=== PATIENT | male | born 1955 | race Caucasian/White ===

== ENCOUNTER 2019-02-17 15:40 | Inpatient (IN) ==
--- NOTE | 2019-02-17 16:34 | Diag Imaging Result Doc PS360 ---
EXAM: CHEST-1 VIEW INDICATION: POSSIBLE SEPSIS TECHNIQUE: One view COMPARISON: 12/11/2018 FINDINGS: There is a stable right chest port. There is a stable calcified granuloma at the right lung base. The lungs are grossly clear. There is no discrete pleural fluid collection or pneumothorax. The cardiomediastinal silhouette and central vasculature are grossly unremarkable. IMPRESSION: No evidence of acute pathology by plain radiograph. Electronically signed by Gadiel Sagastume 02/17/2019 4:31 PM
[2019-02-17 17:12] LABS: BASO# 0.04 X1000 (0.0-0.2); BASO% 0.9 % (0.0-0.8); EOS# 0.03 X1000 (0.0-0.7); EOS% 0.7 % (0.0-10.0); HEMATOCRIT 33.3 % (42.0-52.0); HEMOGLOBIN 10.1 g/dL (14.0-18.0); IMM GRAN# 0.05 X1000 (0.0-0.04); IMM GRAN% 1.1 % (0.0-0.5); LYMPH# 1.06 X1000 (1.2-3.4); LYMPH% 23.6 % (20.5-51.1); MCH 28.1 PG (27-31); MCHC 30.3 g/dL (33-37); MCV 92.8 FL (81-99); MONO# 0.78 X1000 (0.11-0.59); MONO% 17.4 % (1.7-9.3); MPV 11.1 FL (7.4-10.4); NEUT# 2.53 X1000 (1.4-6.5); NEUT% 56.3 % (42.2-75.2); PLT 164 X1000 (130-400); RBC 3.59 XMIL (4.7-6.1); RDW 17.5 % (11.5-14.5); WBC 4.49 X1000 (4.8-10.8)
[2019-02-17] MEDS ORDERED: NS 1,000 ML IV ONE (17:27)
[2019-02-17] MEDS ORDERED: ZOFRAN IV ONE (17:28)
[2019-02-17 17:44] LABS: INR 1.22; PROTIME 15.5 Seconds (11.0-16.0)
[2019-02-17 17:53] LABS: PTT 36.7 Seconds (22.3-41.8)
[2019-02-17 18:17] LABS: BUN 17 mg/dL (8-22); CALCIUM 8.3 mg/dL (8.8-10.2); GLUCOSE 111 mg/dL (70-104); TCO2 22 mmol/L (25-35); TOTAL PROTEIN 6.6 g/dL (6.3-8.3)
[2019-02-17 18:20] LABS: ALBUMIN 3.1 g/dL (3.5-5.0); ALKALINE PHOSPHATASE 227 U/L (32-122); CHLORIDE 96 mmol/L (98-107); CK PROFILE 30 U/L (24-204); CREATININE 1.2 mg/dL (0.7-1.2); ESTIMATED GFR > 60; GOT 13 U/L (10-34); GPT 14 U/L (10-44); POTASSIUM 3.7 mmol/L (3.5-5.1); SODIUM 138 mmol/L (136-145)
[2019-02-17 18:27] LABS: AGAP 20; ALB/GLOB RATIO 0.9; COSMO 278
[2019-02-17 18:47] LABS: URINE SOURCE CLEAN CATCH
[2019-02-17 18:52] LABS: BILIRUBIN URINE MODERATE (NEGATIVE); BLOOD URINE TRACE (NEGATIVE); COLOR YELLOW; GLUCOSE URINE TRACE mg/dL (NEGATIVE); KETONE URINE 10 mg/dL (NEGATIVE); LEUKOCYTES URINE NEGATIVE (NEGATIVE); NITRITE URINE NEGATIVE (NEGATIVE); PROTEIN URINE 300 mg/dL (NEGATIVE); TURBIDITY URINE HAZY (CLEAR); UROBILINOGEN URINE 4 mg/dL (NORMAL)
[2019-02-17 18:55] LABS: UR EPITHELIAL CELLS <10 /HPF (<10); URINE BACTERIA NEGATIVE /HPF; URINE RBC <10 /HPF (<10)
[2019-02-17 19:04] LABS: URINE CASTS NONE SEEN; URINE CRYSTALS NONE SEEN; URINE SMALL ROUND CELLS NONE SEEN; URINE YEAST NONE SEEN
--- NOTE | 2019-02-17 20:27 | Diag Imaging Result Doc PS360 ---
EXAM: CT ABD/PELVIS/PULM ARTERIES - 02/17/2019 HISTORY: Shortness of breath and hx of PE TECHNIQUE: CT angiogram pulmonary arteries with intravenous contrast: Axial, coronal, and 3-D MIP images are obtained. CT abdomen and pelvis with intravenous contrast. COMPARISON: 01/13/2019 CT abdomen/pelvis FINDINGS: CT angiogram pulmonary arteries: There are no filling defects identified in the pulmonary arteries. There is no indication of aortic dissection. There is a calcified granuloma from old granulomatous disease at the right lower lobe. There are multiple scattered subcentimeter noncalcified pulmonary nodules. There is no consolidation, pleural effusion, or pneumothorax identified. There are some enlarged lymph nodes at the left axilla. CT abdomen/pelvis: There are stable small cyst at the lateral right lobe of liver. There is stable borderline splenomegaly. There are no acute changes identified in the liver, spleen, or adrenal glands. The gallbladder is substantially distended, which has developed since the prior exam. There are no discrete calcified gallstones or gross pericholecystic inflammation identified. There are inflammatory changes at the pancreatic head, which also appear to involve the adjacent duodenum. These may relate to acute pancreatitis and/or duodenitis. There is no pseudocyst identified. There is no extraluminal gas identified which which would suggest perforated ulcer. The bilateral kidneys enhance homogeneously. There is no hydronephrosis. There are retroperitoneal and mesenteric adenopathy similar to prior. There are atheromatous changes noted at the superior mesenteric artery similar to prior. There is a left lower quadrant colostomy. There is retained fluid in the right colon, which appears to have mildly thickened ceja. There is no evidence of bowel obstruction. The appendix is mildly prominent in size but this is stable. The appendix shows no obvious inflammation. There is no free air or abscess identified. There is a broad-based midline lower anterior abdominal wall hernia similar to prior. There is a right inguinal hernia which contains the anterior margin of the urinary bladder, similar to prior. IMPRESSION: CT angiogram pulmonary arteries: No evidence of pulmonary embolism. Scattered subcentimeter pulmonary nodules. Left axillary adenopathy. Metastatic disease cannot be excluded. CT abdomen/pelvis: Substantially distended gallbladder. No discrete calcified gallstones or gross pericholecystic inflammation. Acute pancreatitis and/or duodenitis. No evidence of perforated ulcer. Mesenteric and retroperitoneal adenopathy similar to prior. Apparent mild right colitis. This exam was performed using automated exposure control, adjustment of mA or kV according to patient size, and/or use of iterative reconstruction technique. Electronically signed by Michi Quick 02/17/2019 8:24 PM
[2019-02-17] MEDS ORDERED: LR 1,000 ML IV ONE ×2 (21:14→22:02)
--- NOTE | 2019-02-17 23:07 | HISTORY AND PHYSICAL ---
CHIEF COMPLAINT: Nausea, vomiting and diarrhea for 6 days. PRIMARY CARE PHYSICIAN: Luis Cai DO REGULATORY AUDITOR: Edward Zhou MD HISTORY OF PRESENT ILLNESS: This is a pleasant 63-year-old male who was in the emergency room with his sister. He comes in after having nausea and vomiting for 5 days and diarrhea for the past 2. I believe that he was given fluids at Dr. Zhou's office, but was referred to the emergency room for further evaluation. He has a history of colon cancer with colon resection, and he has an ostomy placement which is draining very light bile colored stool at this time. States that he has not been able to eat anything for the past few days. A CT scan was done in the emergency room, which showed acute pancreatitis or duodenitis. Also showed apparent mild right colitis. This is likely chemotherapy induced. His last chemotherapy was treatment was February 06. At any rate, he is severely volume depleted. He will be admitted for further evaluation and treatment. PAST MEDICAL HISTORY: Colon cancer, hypertension, and borderline diabetes mellitus. PREVIOUS SURGICAL HISTORY: Colon resection with ostomy placement. SOCIAL HISTORY: Stopped tobacco 10 years ago, alcohol 30 years ago, and illicit drugs 5 years ago. FAMILY HISTORY: Father has diabetes mellitus. Mother has dementia. ALLERGIES: No known drug allergies. MEDICATIONS: A list has not been reconciled. Nursing is working on reconciling with the pharmacy. These will be started when appropriate. REVIEW OF SYSTEMS: A 14-point review of systems was conducted with the patient. Pertinent positives listed above in the HPI. All other systems reviewed and found to be negative. PHYSICAL EXAMINATION: VITAL SIGNS: Temperature 97.3 degrees, pulse 120, respirations 16, blood pressure 120/81, oxygen saturation 95% on room air. GENERAL: Pleasant 63-year-old male lying in the ER stretcher. He is alert and oriented x3. Answers all questions appropriately. HEENT: Head is atraumatic, normocephalic. Pupils equal, round, reactive to light. Extraocular eye movements intact. Sclera is anicteric. Conjunctiva is mildly pale. Oral mucosa is dry. NECK: Supple. No JVD, no thyromegaly. Trachea is midline. No cervical lymphadenopathy. CARDIAC: S1, S2 appreciated. He is tachycardic. No murmurs, gallops, rubs. LUNGS: Clear to auscultation bilaterally. No rhonchi, wheezes, rales. Symmetric rise and fall respirations. ABDOMEN: Soft, nondistended. Surprisingly nontender to palpation. Bowel sounds present all 4 quadrants, normoactive. No pulsatile mass or organomegaly. Ostomy site is clean, dry and intact. EXTREMITIES: No clubbing, cyanosis or edema. Decreased pulses all 4 extremities. NEUROLOGICAL: Alert and oriented x3. No focal motor deficits. Otherwise nonfocal examination. GENITOURINARY: No bladder distention. Patient voids. Otherwise deferred. DIAGNOSTIC DATA: A CT abdomen and pelvis showed acute pancreatitis versus duodenitis with mild colitis. LABORATORY DATA: WBC 4.49, hemoglobin 10.1, hematocrit 33.3, platelet count 164,000. Coags within normal limits. Sodium 138, potassium 3.7, chloride 96, carbon dioxide 22, BUN 17, creatinine 1.2, glucose 111. Lipase 63. ASSESSMENT: 1. Acute pancreatitis. 2. Mild chemo-induced colitis. 3. Colon cancer. 4. Hypertension. 5. Borderline diabetes mellitus. PLAN: Give patient a bolus of Lactated Ringer's and continue Lactated Ringer's at 150 mL an hour x2 bags, morphine 2 mg IV q.2h. as needed for pain, Zofran 4 mg every 4-6 hours as needed for nausea. Will check blood cultures. At this time will not give antibiotics for colitis as this is likely chemotherapy induced. Will recheck laboratory data, check hemoglobin A1c. Will trend fingerstick blood sugars, however, his blood glucose is roughly normal. Also he has not been taking any oral intake and is n.p.o. now related to the pancreatitis. Will not provide sliding scale insulin at this time. I will consult Dr. Zhou as the patient is known to him. Further recommendations based on patient's clinical course. Addendum Pt's exam was essentially benign except for decreased skin turgor, xerostomia and very mild epigastric tenderness. Aggressive crystalloid infusion x 24 hours and analgesia will initiated and I suspect pancreatitis could be related to chemotherapy IV PPI for duodenitis. Dictated by ZEN Mckinney for Toro Pride MD cc: ZEN Mckinney MD [facility], DO Sammy Becdach, MD [facility]
[2019-02-18] MEDS: MORPHINE IV PRN ×3 (00:08→10:06)
[2019-02-18] MEDS ORDERED: LOVENOX SUBQ SCH (01:53)
[2019-02-18] MEDS ORDERED: TYLENOL PO PRN (01:53)
[2019-02-18 02:26] LABS: HEMOGLOBIN A1C 5.6 % (4.8-6.0)
--- NOTE | 2019-02-18 05:18 | EKG Report ---
Test Performed on : 02/17/2019 6:42:13 PM Test Reason : Tachycardia Blood Pressure : / mmHG Vent. Rate : 119 BPM Atrial Rate : 119 BPM P-R Int : 148 ms QRS Dur : 078 ms QT Int : 338 ms P-R-T Axes : 072 -19 079 degrees QTc Int : 475 ms Sinus tachycardia. Inferior infarct , age undetermined Cannot rule out Anterior infarct , age undetermined Abnormal ECG When compared with ECG of 10-JAN-2017 11:11, Vent. rate has increased BY 40 BPM Inferior infarct is now present T wave amplitude has decreased in Inferior leads Unconfirmed Result
[2019-02-18 08:40] LABS: BASO# 0.03 X1000 (0.0-0.2); BASO% 0.5 % (0.0-0.8); EOS# 0.06 X1000 (0.0-0.7); HEMATOCRIT 29.3 % (42.0-52.0); HEMOGLOBIN 8.8 g/dL (14.0-18.0); IMM GRAN# 0.07 X1000 (0.0-0.04); IMM GRAN% 1.2 % (0.0-0.5); LYMPH# 1.27 X1000 (1.2-3.4); LYMPH% 21.9 % (20.5-51.1); MCH 28.3 PG (27-31); MCV 94.2 FL (81-99); MONO# 0.73 X1000 (0.11-0.59); MONO% 12.6 % (1.7-9.3); MPV 11.2 FL (7.4-10.4); NEUT# 3.64 X1000 (1.4-6.5); NEUT% 62.8 % (42.2-75.2); PLT 165 X1000 (130-400); RBC 3.11 XMIL (4.7-6.1); RDW 17.6 % (11.5-14.5)
[2019-02-18 09:12] LABS: AGAP 16; BUN 11 mg/dL (8-22); CALCIUM 8.3 mg/dL (8.8-10.2); CHLORIDE 100 mmol/L (98-107); COSMO 274; CREATININE 0.8 mg/dL (0.7-1.2); ESTIMATED GFR > 60; GLUCOSE 88 mg/dL (70-104); POTASSIUM 3.4 mmol/L (3.5-5.1); SODIUM 138 mmol/L (136-145); TCO2 22 mmol/L (25-35)
[2019-02-18 09:17] LABS: LYMPHS 14 % (21-51); MONO 6 % (1-9); SEGS 76 % (42-75)
[2019-02-18] MEDS ORDERED: LR 0 ML ONE (10:03)
[2019-02-18] MEDS: PRILOSEC PO SCH (10:05)
--- NOTE | 2019-02-18 13:34 | PROGRESS NOTE ---
DATE: 02/18/2019 SUBJECTIVE: This patient is still complaining of abdominal pain, and he is still having diarrhea. I checked his colostomy bag and he has liquid green bowel movements. He is complaining of pain around the colostomy back area and a little bit around the periumbilical area. We will continue with same management. He is getting IV fluids. His potassium is a bit low, so I will replace it. I will replace the potassium through IV fluids. I will start this patient on a liquid diet. As per the patient, he has been tolerating some sips of water. OBJECTIVE: Vital Signs: Temperature 99 degrees, pulse 110, respiratory rate 12, blood pressure 152/95, oxygen saturation 93 on room air. HEENT: Head normocephalic, no trauma. PERRLA. Neck: Supple. No JVD. No masses. Central trachea. Chest: Clear to auscultation. No wheezing. No rales. Abdomen: Soft, nondistended. He is slightly tender to palpation at the level of the periumbilical area and around the colostomy bag. The colostomy bag is on the left side with a lot of fluid which is green. Midline scar which is old. Neurological: The patient is awake, alert, and oriented x3. No focal deficits. LABORATORY: WBC 5.8, hemoglobin 8.8, hematocrit 29.3, platelets 165,000. Sodium 138, potassium 3.4, chloride 100, bicarbonate 22, BUN 11, creatinine 0.8 glucose 88, calcium 8.3. ASSESSMENT AND PLAN: 1. Colitis, probably chemotherapy related, continue IV fluids. He has been placed on some of his home medications including pain medication. I will stop the morphine and I will put him on [place]. I will monitor this patient closely. Hematology and oncology has been consulted. 2. Possible mild pancreatitis, this patient is hungry and he is not longer having nausea and vomiting, so I will start this patient on a liquid diet to see how he does. 3. Colon cancer, followed by Dr. Zhou. Monitor. 4. Hypertension. I will put this patient back on some of his home medications. cc: Josh Mascorro MD
[2019-02-18] MEDS: POTASSIUM CHLORIDE 20 MEQ in NS 1,000 ML IV SCH (18:21)
[2019-02-18] MEDS: NORCO-7.5 PO PRN (18:22)
[2019-02-18] MEDS: DURAGESIC 50 MICROGM/HR PATCH TD SCH (21:00)
--- NOTE | 2019-02-18 22:03 | HEMO/ONC CONSULTATION ---
DATE: 02/18/2019 ADMITTING PHYSICIAN: Toro Pride MD REQUESTING PHYSICIAN: Toro Pride MD. We appreciate this consult. CHIEF COMPLAINT: Colon cancer. HISTORY OF PRESENT ILLNESS: Mr. Rodriguez is a pleasant 63-year-old male well known to Dr. Zhou with a history of metastatic colon adenocarcinoma on FOLFIRI and Zaltrap. The patient's last treatment was 02/06/2019. The patient underwent PET scan in November of 2018, which revealed a favorable treatment response. The patient presented to clinic with reports of nausea and an inability to keep anything down by mouth. He reported some transient abdominal pain. Additionally, he reported that he had had some diarrhea. The patient received 1 L normal saline in clinic but afterwards reported some dizziness and was slightly disoriented. The patient was sent to [facility] Emergency Department for evaluation. The patient underwent CT of the abdomen and pelvis which revealed mild right colitis and acute pancreatitis and/or duodenitis. Additionally mesenteric and retroperitoneal adenopathy was seen that was similar to prior. The patient underwent evaluation of lipase, which was slightly elevated to 63. The patient will be admitted for pancreatitis. We are consulted as the patient is well known to us. PAST MEDICAL HISTORY: 1. Colon cancer. 2. Hypertension. 3. Borderline diabetes mellitus. PAST SURGICAL HISTORY: Colon resection with colostomy placement. SOCIAL HISTORY: The patient stopped smoking cigarettes 10 years ago. He does not currently use alcohol or illicit drugs. FAMILY HISTORY: Negative for hematologic or oncologic disease. MEDICATIONS ON ADMISSION: Reconciliation is currently pending. ALLERGIES: The patient has no known drug allergies. REVIEW OF SYSTEMS: A 14-point review of systems was obtained and is negative except for mentioned in HPI. PHYSICAL EXAMINATION: General: Mr. Rodriguez is a pleasant 63-year-old male, sitting up in bed in no acute distress. Vital Signs: Temperature 99 degrees, blood pressure 152/95, heart rate 109, respirations 20, O2 saturation 99% on room air. HEENT: Normocephalic, atraumatic. Mucous membranes are pale and slightly dry. Sclerae are anicteric. Extraocular movements intact. Neck: Supple. Lungs: Clear to auscultation bilaterally. Chest expansion is equal bilaterally. Cardiovascular: S1, S2 is heard. The patient is tachycardic. Abdomen: Soft, distended. Bowel sounds are positive in all quadrants. The patient has no rebound. Colostomy is draining dark yellow stool with no melena or bright red blood noted. Extremities: Without clubbing, cyanosis or edema. Dermatologic: No rashes bruises or lesions. Neurologic: The patient is awake, alert, and oriented x3 and has no focal motor deficits. LABORATORY DATA: Hemoglobin is 8.8, hematocrit 29.3, white blood cell count of 5.80, platelets 169,000. Sodium 138, potassium 3.4, chloride 100, CO2 is 22, BUN is 11, creatinine is 0.8, glucose is 88, calcium is 8.3, lipase is 63. Bilirubin 0.20, alkaline phosphatase 227, AST 13, ALT 14. Influenza A and B are both negative. Blood and urine cultures are pending. IMAGING STUDIES: CT of the abdomen and pelvis reveals acute pancreatitis plus or minus duodenitis as well as mild right colitis and a distended gallbladder. Additionally mesenteric and retroperitoneal adenopathy is seen that is similar to prior. Chest x-ray is negative for any acute disease. ASSESSMENT AND PLAN: 1. Metastatic colon adenocarcinoma on FOLFIRI and Zaltrap. Last treatment was on 02/06/2019. PET scan in November of 2018 revealed favorable treatment response. We will hold treatment at this time until the patient's acute illness improves. 2. Acute pancreatitis. Lipase is slightly elevated to 63. The patient is undergoing aggressive IV fluid hydration. He is currently n.p.o. with some clear liquids only. Pain control per hospitalist. 3. Mild colitis not related to chemotherapy as the patient is not currently on immunotherapy. 4. Hypertension per hospitalist. 5. Diabetes mellitus type 2. Blood glucose is currently stable. The patient is on sliding scale insulin. We will follow along with you and make further recommendations pending outcomes. The above reflects the history, exam, assessment and plan of Dr. Zhou. Dictated by ZEN Bustos for Edward Zhou MD cc: ZEN Bustos MD
[2019-02-19] MEDS: NORCO-7.5 PO PRN (04:17)
[2019-02-19 05:33] LABS: BASO# 0.03 X1000 (0.0-0.2); BASO% 0.3 % (0.0-0.8); EOS# 0.08 X1000 (0.0-0.7); EOS% 0.9 % (0.0-10.0); HEMATOCRIT 31.1 % (42.0-52.0); HEMOGLOBIN 9.3 g/dL (14.0-18.0); IMM GRAN# 0.26 X1000 (0.0-0.04); IMM GRAN% 2.9 % (0.0-0.5); LYMPH% 13.3 % (20.5-51.1); MCH 28.1 PG (27-31); MCHC 29.9 g/dL (33-37); MONO# 0.99 X1000 (0.11-0.59); MPV 10.9 FL (7.4-10.4); NEUT# 6.44 X1000 (1.4-6.5); NEUT% 71.6 % (42.2-75.2); PLT 181 X1000 (130-400); RBC 3.31 XMIL (4.7-6.1); RDW 17.5 % (11.5-14.5)
[2019-02-19] MEDS: POTASSIUM CHLORIDE 20 MEQ in NS 1,000 ML IV SCH ×2 (06:11→19:52)
[2019-02-19 06:39] LABS: AGAP 16; ALB/GLOB RATIO 0.8; ALBUMIN 2.7 g/dL (3.5-5.0); ALKALINE PHOSPHATASE 227 U/L (32-122); BUN 5 mg/dL (8-22); CALCIUM 8.4 mg/dL (8.8-10.2); CHLORIDE 103 mmol/L (98-107); COSMO 279; CREATININE 0.6 mg/dL (0.7-1.2); ESTIMATED GFR > 60; GLUCOSE 113 mg/dL (70-104); GOT 13 U/L (10-34); GPT 9 U/L (10-44); POTASSIUM 3.4 mmol/L (3.5-5.1); SODIUM 141 mmol/L (136-145); TCO2 22 mmol/L (25-35); TOTAL BILIRUBIN 0.21 mg/dL (0.20-1.00); TOTAL PROTEIN 6.2 g/dL (6.3-8.3)
[2019-02-19 08:04] LABS: BANDS 1 % (0-1); EOS 3 % (1-10); LYMPHS 9 % (21-51); MONO 8 % (1-9); SEGS 78 % (42-75)
[2019-02-19] MEDS: XARELTO PO SCH (10:19)
[2019-02-19] MEDS: PRILOSEC PO SCH (10:19)
[2019-02-19] MEDS: MORPHINE IV PRN ×3 (12:24→22:23)
--- NOTE | 2019-02-19 18:19 | PROGRESS NOTE ---
DATE: 02/19/2019 SUBJECTIVE: The patient is still complaining of abdominal pain. I have readjusted his pain medication. His colostomy bag is still having liquid green bowel movement. I will continue with his IV fluids. White blood cell count is still normal. He is getting potassium through the IV fluids as well. I have requested C. difficile toxin and antigen and also stool culture, WBC in the stool. He has evidence of colitis but probably it is viral since this patient has not been having any kind of chemotherapy. OBJECTIVE: Vital Signs: Temperature 97.6 degrees, pulse 117, respiratory rate 18, blood pressure 167/96, oxygen saturation 98 on room air. HEENT: Head normocephalic. No trauma. PERRLA. Neck: Supple. No JVD. No masses. Central trachea. Chest: Clear to auscultation. No wheezing. No rales. Abdomen: Soft, nondistended. Slightly tender to palpation at the level of the periumbilical area and around the colostomy bag. The colostomy bag is on the left side and it has a lot of fluid which is green, diarrhea. Midline scar which is old. Neurological: The patient is awake, alert. He is oriented x3. No focal deficits. LABORATORY: WBC 9, hemoglobin 9.3, hematocrit 31.1, platelets 181,000. Sodium 141, potassium 3.4, chloride 103, bicarbonate 22, BUN 5, creatinine 0.6, glucose 113, calcium 8.4. ASSESSMENT AND PLAN: 1. Colitis, likely related to a viral infection, but I would like to rule out Clostridium difficile colitis. I will ask for WBC in the stool and culture. He is not having fever today. Hematology/Oncology Department evaluated this patient. He has not been getting any chemotherapy recently. 2. Possible mild pancreatitis/duodenitis/colitis, as above. Continue with the same management. He is tolerating p.o. 3. Colon cancer, followed by Dr. Zhou. 4. Hypertension. The patient seems to be having a slightly elevated high blood pressure. He is getting fluids. I will restart his losartan since his kidney function is normal and I will readjust the medications as needed. cc: Josh Mascorro MD
[2019-02-19] MEDS: COZAAR PO SCH (19:56)
[2019-02-19] MEDS: ZOFRAN IV PRN (22:22)
[2019-02-20] MEDS: MORPHINE IV PRN ×5 (02:42→21:33)
[2019-02-20] MEDS: NS + KCL 20 MEQ 1,000 ML IV SCH ×4 (02:43→22:40)
[2019-02-20] MEDS: PRILOSEC PO SCH (06:09)
[2019-02-20 07:17] LABS: BASO# 0.06 X1000 (0.0-0.2); BASO% 0.5 % (0.0-0.8); EOS# 0.07 X1000 (0.0-0.7); EOS% 0.6 % (0.0-10.0); HEMATOCRIT 32.2 % (42.0-52.0); HEMOGLOBIN 9.6 g/dL (14.0-18.0); IMM GRAN# 0.41 X1000 (0.0-0.04); IMM GRAN% 3.7 % (0.0-0.5); LYMPH# 1.21 X1000 (1.2-3.4); MCHC 29.8 g/dL (33-37); MCV 93.9 FL (81-99); MONO# 1.04 X1000 (0.11-0.59); MONO% 9.4 % (1.7-9.3); MPV 10.7 FL (7.4-10.4); NEUT# 8.25 X1000 (1.4-6.5); NEUT% 74.8 % (42.2-75.2); PLT 202 X1000 (130-400); RBC 3.43 XMIL (4.7-6.1); RDW 17.8 % (11.5-14.5); WBC 11.04 X1000 (4.8-10.8)
[2019-02-20 07:51] LABS: AGAP 13; BUN 2 mg/dL (8-22); CALCIUM 8.5 mg/dL (8.8-10.2); CHLORIDE 103 mmol/L (98-107); COSMO 278; CREATININE 0.5 mg/dL (0.7-1.2); ESTIMATED GFR > 60; GLUCOSE 117 mg/dL (70-104); POTASSIUM 3.5 mmol/L (3.5-5.1); SODIUM 141 mmol/L (136-145); TCO2 25 mmol/L (25-35)
[2019-02-20] MEDS: XARELTO PO SCH (08:56)
[2019-02-20] MEDS: COZAAR PO SCH (08:56)
[2019-02-20] MEDS: ZOFRAN IV PRN ×2 (10:51→17:12)
--- NOTE | 2019-02-20 11:01 | PROGRESS NOTE ---
DATE: 02/20/2019 SUBJECTIVE: The patient is still complaining of abdominal pain. He is still having diarrhea and the C difficile antigen is positive, as per the patient he received 3 weeks ago some antibiotics, so I will start this patient on vancomycin p.o. I do believe this patient will probably be better in a couple days. OBJECTIVE: Vital Signs: Temperature 98.3 degrees, pulse 104, respiratory rate 22, blood pressure 153/97, oxygen saturation 99 on room air. HEENT: Head normocephalic, no trauma. PERRLA. Neck: Supple. No JVD. No masses. Central trachea. Chest: Clear to auscultation. No wheezing. No rales. Abdomen: Soft. It is not distended but he is having generalized tenderness to palpation, mostly at the level of the periumbilical area and colostomy bag. He has a colostomy bag on the left side and a chronic scar in the middle he has fluid in the bag which is green. Neurological: The patient is awake, alert, he is oriented x3. He is tolerating p.o. now. LABORATORY DATA: WBC 11, hemoglobin 9.6, hematocrit 32.2, platelets 202,000. Sodium 141, potassium 3.5, chloride 103, bicarbonate 25, BUN 2, creatinine 0.5 glucose 117, calcium 8.5. ASSESSMENT AND PLAN: 1. Colitis, likely secondary to Clostridium difficile infection. As per the patient he received antibiotics 3 weeks ago. I have placed this patient on vancomycin p.o. and I will monitor. He is still having diarrhea and abdominal discomfort. 2. Possible mild pancreatitis/duodenitis/colitis, as above, he is tolerating p.o. 3. Colon cancer, followed by Dr. Zhou. 4. Hypertension, stable. cc: Josh Mascorro MD
[2019-02-20] MEDS ORDERED: VANCOCIN PO SCH ×2 (14:00)
[2019-02-20] MEDS: PROTONIX IV SCH (21:33)
[2019-02-20] MEDS: PHENERGAN IV PRN (21:33)
[2019-02-20] MEDS: VANCOCIN PO SCH (22:41)
[2019-02-21] MEDS: MORPHINE IV PRN ×5 (01:29→21:04)
[2019-02-21] MEDS: PHENERGAN IV PRN ×3 (03:08→19:45)
[2019-02-21] MEDS: VANCOCIN PO SCH ×4 (06:18→23:31)
[2019-02-21] MEDS: NS + KCL 20 MEQ 1,000 ML IV SCH ×3 (07:35→16:40)
[2019-02-21 07:44] LABS: BASO# 0.03 X1000 (0.0-0.2); BASO% 0.3 % (0.0-0.8); EOS# 0.04 X1000 (0.0-0.7); EOS% 0.4 % (0.0-10.0); HEMATOCRIT 32.3 % (42.0-52.0); HEMOGLOBIN 9.6 g/dL (14.0-18.0); IMM GRAN# 0.22 X1000 (0.0-0.04); IMM GRAN% 2.2 % (0.0-0.5); LYMPH# 1.05 X1000 (1.2-3.4); LYMPH% 10.5 % (20.5-51.1); MCH 27.7 PG (27-31); MCHC 29.7 g/dL (33-37); MCV 93.4 FL (81-99); MONO# 0.96 X1000 (0.11-0.59); MONO% 9.6 % (1.7-9.3); NEUT# 7.71 X1000 (1.4-6.5); PLT 219 X1000 (130-400); RBC 3.46 XMIL (4.7-6.1); RDW 17.7 % (11.5-14.5); WBC 10.01 X1000 (4.8-10.8)
[2019-02-21 08:05] LABS: AGAP 13; BUN 2 mg/dL (8-22); CALCIUM 8.3 mg/dL (8.8-10.2); CHLORIDE 101 mmol/L (98-107); COSMO 275; CREATININE 0.5 mg/dL (0.7-1.2); ESTIMATED GFR > 60; GLUCOSE 122 mg/dL (70-104); POTASSIUM 3.2 mmol/L (3.5-5.1); SODIUM 139 mmol/L (136-145); TCO2 25 mmol/L (25-35)
[2019-02-21] MEDS: SODIUM CHLORIDE 0.9% INJ SCH ×2 (08:51→19:44)
[2019-02-21] MEDS: COZAAR PO SCH (08:51)
[2019-02-21] MEDS: PROTONIX IV SCH ×2 (08:51→19:44)
[2019-02-21] MEDS: XARELTO PO SCH (08:52)
[2019-02-21] MEDS: SODIUM CHLORIDE 0.9% INJ PRN ×2 (08:52→19:45)
[2019-02-21] MEDS: FLAGYL 500 MG/NS 500 MG/100 ML IVPB IV SCH ×3 (11:59→23:31)
--- NOTE | 2019-02-21 16:48 | PROGRESS NOTE ---
DATE: 02/21/2019 SUBJECTIVE: The patient is still complaining of abdominal pain. He is still having diarrhea, but also he is having nausea and vomiting, so I do not think he is tolerating too much the vancomycin p.o. I will start this patient on Flagyl IV to try to help with his C difficile colitis, and I will continue with vancomycin p.o. I will stop the full liquid diet and put him on a clear liquid diet. I will ask for a new lipase level. OBJECTIVE: Vital Signs: Temperature 98.5 degrees, pulse 118, respiratory rate 19, blood pressure 170/100, oxygen saturation 99 on room air. HEENT: Head normocephalic, no trauma. PERRLA. Neck: Supple. No JVD. No masses. Central trachea. Chest: Clear to auscultation. No wheezing. No rales. Abdomen: Soft. It is not distended, but he is having generalized tenderness to palpation mostly at the level of the periumbilical area and around the colostomy bag. He has a colostomy on the left side and he has a chronic scar in the middle of the abdomen. He has green liquid stools. Neurological: Patient is awake. He is oriented x3. No focal neurological deficits. He is not tolerating p.o. He is having nausea and vomiting. LABORATORY: WBC 10.1, hemoglobin 9.6, hematocrit 32.3, platelets 219,000. Sodium 139, potassium 3.2, chloride 101, bicarbonate 25, BUN 2, creatinine 0.5, glucose 122, calcium 8.3. ASSESSMENT AND PLAN: 1. Colitis, likely secondary to Clostridium difficile infection. As per the patient, he received antibiotics around 3 weeks ago. I have placed this patient on vancomycin p.o., but he is having nausea and vomiting. I do not think he is keeping this treatment down. I will start this patient on Flagyl as well. He is still having diarrhea and abdominal pain. 2. Possible mild pancreatitis/duodenitis/colitis. As above. I have placed this patient on a liquid diet. 3. Colon cancer. Followed by Dr. Zhou. 4. Hypertension. Stable, his blood pressure is slightly elevated probably because of the pain. cc: Josh Mascorro MD
[2019-02-21] MEDS: DURAGESIC 50 MICROGM/HR PATCH TD SCH (19:45)
[2019-02-22] MEDS: MORPHINE IV PRN ×6 (00:59→22:23)
[2019-02-22] MEDS: FLAGYL 500 MG/NS 500 MG/100 ML IVPB IV SCH ×4 (04:39→23:06)
[2019-02-22] MEDS: NS + KCL 20 MEQ 1,000 ML IV SCH ×3 (04:39→18:17)
[2019-02-22] MEDS: VANCOCIN PO SCH ×4 (04:39→23:06)
[2019-02-22 07:55] LABS: BASO# 0.04 X1000 (0.0-0.2); BASO% 0.4 % (0.0-0.8); EOS# 0.05 X1000 (0.0-0.7); EOS% 0.5 % (0.0-10.0); HEMATOCRIT 33.6 % (42.0-52.0); HEMOGLOBIN 10.1 g/dL (14.0-18.0); IMM GRAN# 0.19 X1000 (0.0-0.04); IMM GRAN% 1.9 % (0.0-0.5); LYMPH# 1.39 X1000 (1.2-3.4); LYMPH% 13.9 % (20.5-51.1); MCHC 30.1 g/dL (33-37); MCV 93.1 FL (81-99); MONO# 0.96 X1000 (0.11-0.59); MONO% 9.6 % (1.7-9.3); MPV 10.6 FL (7.4-10.4); NEUT# 7.38 X1000 (1.4-6.5); NEUT% 73.7 % (42.2-75.2); PLT 228 X1000 (130-400); RBC 3.61 XMIL (4.7-6.1); RDW 17.7 % (11.5-14.5); WBC 10.01 X1000 (4.8-10.8)
[2019-02-22 08:28] LABS: AMYLASE 33 U/L (20-200); LIPASE 47 U/L (13-60)
[2019-02-22] MEDS: PROTONIX IV SCH ×2 (08:34→21:25)
[2019-02-22] MEDS: COZAAR PO SCH (08:34)
[2019-02-22] MEDS: XARELTO PO SCH (08:34)
[2019-02-22 08:37] LABS: AGAP 14; BUN 3 mg/dL (8-22); CALCIUM 8.3 mg/dL (8.8-10.2); CHLORIDE 101 mmol/L (98-107); COSMO 275; CREATININE 0.5 mg/dL (0.7-1.2); ESTIMATED GFR > 60; GLUCOSE 107 mg/dL (70-104); MAGNESIUM 1.4 mg/dL (1.5-2.7); PHOSPHORUS 3.3 mg/dL (2.7-4.5); POTASSIUM 3.1 mmol/L (3.5-5.1); SODIUM 139 mmol/L (136-145); TCO2 24 mmol/L (25-35)
[2019-02-22] MEDS: PHENERGAN IV PRN (09:24)
[2019-02-22] MEDS ORDERED: MAGNESIUM SULFATE 2 GM/S.W.I. 2 GM/50 ML IVPB IV ONE (09:54)
[2019-02-22] MEDS ORDERED: POTASSIUM CHLORIDE 40 MEQ/SWI 40 MEQ/100 ML IVPB IV ONE (09:55)
--- NOTE | 2019-02-22 12:53 | PROGRESS NOTE ---
DATE: 02/22/2019 SUBJECTIVE: This patient is still complaining of abdominal pain. He is still having some diarrhea. He had some nausea, I believe, during the night but not today in the morning. He is tolerating liquids a little bit. Since this patient is not getting better I will get the Gastroenterology Department to evaluate this patient. OBJECTIVE: Vital Signs: Temperature 98.3, pulse 122, respiratory rate 18, blood pressure 172/111, oxygen saturation 99% on room air. HEENT: Head normocephalic. No trauma. PERRLA. Neck: Supple. No JVD. No masses. Central trachea. Chest: Clear to auscultation. No wheezing. No rales. Abdomen: Soft and slightly distended. He is having generalized tenderness to palpation. No signs of peritoneal irritation. The pain is mostly at the level of the periumbilical area and around the colostomy bag. He has a colostomy bag on the left side and he has a chronic scar in the middle of the abdomen. He has green liquid stools. Neurological: The patient is wake. He is alert. He is following commands. He is oriented times 3. LABORATORY: WBC 10, hemoglobin 10.1, hematocrit 33.6, platelets 228. Sodium 139, potassium 3.1, chloride 101, bicarbonate 24, BUN 3, creatinine 0.5, glucose 107, calcium 8.3, magnesium 1.4. ASSESSMENT AND PLAN: 1. Colitis, probably secondary to clostridium difficile infection. We have a positive antigen. Toxin is negative. As per the patient, she received antibiotics around 3 weeks ago. I have placed this patient on vancomycin p.o. but this patient has been having nausea and vomiting and I do not think he is keeping the medication down so I have already started treatment with Flagyl and I have consulted the Gastroenterology Department to evaluate this patient. 2. Possible mild pancreatitis and duodenitis/colitis, as above. I have placed this patient on a liquid diet. He has been having nausea and vomiting. 3. Nausea and vomiting. Apparently no episodes of nausea or vomiting today. We will continue with the same treatment. 4. Hypokalemia with hypomagnesemia. I will replace both. 5. Colon cancer. Followed by Dr. Zhou. 6. Hypertension. I have placed this patient today on Lopressor 25 mg p.o. b.i.d. to see how he does. He is also tachycardic. cc: Josh Mascorro MD
[2019-02-22] MEDS: LOPRESSOR PO SCH ×2 (13:38→21:27)
[2019-02-22 18:43] LABS: URINE SOURCE CATH
[2019-02-22 18:46] LABS: BILIRUBIN URINE NEGATIVE (NEGATIVE); BLOOD URINE NEGATIVE (NEGATIVE); COLOR YELLOW; GLUCOSE URINE NEGATIVE (NEGATIVE); KETONE URINE TRACE mg/dL (NEGATIVE); LEUKOCYTES URINE NEGATIVE (NEGATIVE); NITRITE URINE NEGATIVE (NEGATIVE); PH URINE 6.5; PROTEIN URINE TRACE mg/dL (NEGATIVE); SP GRAVITY URINE 1.009; TURBIDITY URINE CLEAR (CLEAR); UROBILINOGEN URINE NORMAL (NORMAL)
[2019-02-22 18:47] LABS: UR EPITHELIAL CELLS <10 /HPF (<10); URINE BACTERIA NEGATIVE /HPF; URINE RBC <10 /HPF (<10); URINE WBC <10 /HPF (<10)
[2019-02-22] MEDS: SODIUM CHLORIDE 0.9% INJ SCH (21:25)
[2019-02-23] MEDS: PHENERGAN IV PRN ×4 (00:39→18:52)
[2019-02-23] MEDS: SODIUM CHLORIDE 0.9% INJ PRN ×2 (00:39→08:54)
[2019-02-23] MEDS: NS + KCL 20 MEQ 1,000 ML IV SCH ×2 (00:42→11:09)
[2019-02-23] MEDS: MORPHINE IV PRN ×6 (02:35→22:38)
[2019-02-23] MEDS: VANCOCIN PO SCH ×4 (05:07→22:40)
[2019-02-23] MEDS: FLAGYL 500 MG/NS 500 MG/100 ML IVPB IV SCH ×4 (05:07→22:38)
[2019-02-23] MEDS: COZAAR PO SCH (08:54)
[2019-02-23] MEDS: XARELTO PO SCH (08:54)
[2019-02-23] MEDS: LOPRESSOR PO SCH ×2 (08:54→20:03)
[2019-02-23] MEDS: SODIUM CHLORIDE 0.9% INJ SCH ×2 (08:54→20:03)
[2019-02-23] MEDS: PROTONIX IV SCH ×2 (08:54→20:03)
[2019-02-23 10:27] LABS: AGAP 17; BUN 4 mg/dL (8-22); CALCIUM 8.4 mg/dL (8.8-10.2); CHLORIDE 100 mmol/L (98-107); COSMO 272; CREATININE 0.5 mg/dL (0.7-1.2); ESTIMATED GFR > 60; GLUCOSE 94 mg/dL (70-104); MAGNESIUM 1.9 mg/dL (1.5-2.7); PHOSPHORUS 2.7 mg/dL (2.7-4.5); POTASSIUM 3.6 mmol/L (3.5-5.1); SODIUM 138 mmol/L (136-145); TCO2 21 mmol/L (25-35)
--- NOTE | 2019-02-23 11:30 | PROGRESS NOTE ---
DATE: 02/23/2019 SUBJECTIVE: This patient is still having abdominal pain. He is still having some diarrhea. He is still complaining of nausea. No vomiting. Gastroenterology Department has been consulted; pending recommendations. OBJECTIVE: Vital Signs: Temperature 98.8 degrees, pulse 105, respiratory rate 18, blood pressure 161/96, oxygen saturation 98 on room air. HEENT: Head normocephalic. No trauma. PERRLA. Neck: Supple. No JVD. No masses. Central trachea. Chest: Clear to auscultation. No wheezing. No rales. Abdomen: Soft, slightly distended. He is having generalized tenderness to palpation, but no signs of peritoneal irritation. His pain is mostly at the level of the periumbilical area and the left side. He has a colostomy bag on left side, and he has a big scar in the middle of the abdomen. He has green, liquid stools. Neurological: The patient is awake, alert. He is oriented. He is following commands. LABORATORY DATA: Sodium 138, potassium 3.6, chloride 100, bicarbonate 21, BUN 4, creatinine 0.5, glucose 94, calcium 8.4. Magnesium 1.9. ASSESSMENT AND PLAN: 1. Colitis, probably secondary to Clostridium difficile infection. We have a positive antigen. Toxin is negative. As per the patient, he received antibiotics around 3 weeks ago. Continue with vancomycin by mouth and Flagyl intravenously. He is still having some nausea. 2. Possible mild pancreatitis/duodenitis/colitis. As above. 3. Nausea and vomiting. No vomiting today. Continue with nausea medication. 4. Hypokalemia with hypomagnesemia. Resolved. 5. Colon cancer, followed by Dr. Zhou. 6. Hypertension. I have placed this patient on Lopressor 25 mg by mouth twice daily. Blood pressure seems to be about the same. He is less tachycardic though. I will increase the dose to 50 twice a day to see how he does. cc: Josh Mascorro MD
--- NOTE | 2019-02-23 21:40 | GASTROENTEROLOGY CONSULTATION ---
DATE: 02/23/2019 REASON FOR CONSULT: Colitis, diarrhea. HISTORY OF PRESENT ILLNESS: Mr. Michael Dale is a 63-year-old male with a history of colon cancer who is being followed by Dr. Zhou. The patient's last chemo treatment was in January. The patient has a history of colon cancer with colon resection and colostomy placement. The patient has been complaining that since Sunday afternoon onwards, he has been having the nausea and vomiting, which is yellowish, greenish in color with the abdominal cramping and also having some back pain. The patient has been in the hospital since 02/17. The patient's chest x-ray on 02/17 had showed no evidence of acute pathology. His CT angiogram of the pulmonary artery has shown no evidence of pulmonary embolism. Scattered subcentimeter pulmonary nodules. Left axillary adenopathy, metastatic disease that cannot be excluded. CT of the abdomen and pelvis has shown substantially distended gallbladder. No discrete calcified gallstones or gross pericholecystic inflammation, acute pancreatitis or duodenitis. No evidence of perforated ulcer, mesenteric and retroperitoneal adenopathy and apparent mild right colitis. PAST MEDICAL HISTORY: Colon cancer, status post colostomy, hypertension, borderline diabetes. PAST SURGICAL HISTORY: Colon resection with ostomy and port on the right chest. SOCIAL HISTORY: The patient is , has 1 kid. He was a smoker and alcoholic in the past. He used to do drugs in the past. ALLERGIES: No known drug allergies. FAMILY HISTORY: His father had diabetes and mother has dementia. MEDICATIONS ARE: Fentanyl 1 patch 50 mcg every 72 hours, diphenoxylate/atropine 1 to 2 tablets p.o. every 8 hours as needed, hydrocodone/acetaminophen 7.5/325 one tablet b.i.d. as needed, omeprazole 40 mg p.o. daily, Zofran 4 mg every 6 to 8 hours p.r.n. as needed, Xarelto 20 mg daily, dicyclomine 10 mg p.o. every 8 hours as needed, losartan 100 mg p.o. daily. REVIEW OF SYSTEMS: As per HPI. Otherwise, 12 point review of system is negative. PHYSICAL EXAMINATION: Vital Signs: Temperature 98.2 degrees, pulse 101, respirations 16, blood pressure 157/99, oxygen saturation 100% on room air. The patient's weight is 167 pounds. BMI is 28.7 kg/m2. General: He is alert, oriented x3. Answers questions appropriately. HEENT: Pale conjunctivae. No icterus. PERRL. Neck: Supple. Lungs: Clear to auscultation. Cardiovascular: The patient is tachycardic. Abdomen: Abdomen is mildly distended, tender. Has a colostomy on the left side. Active bowel sounds heard in all 4 quadrants. Extremities: No clubbing, no cyanosis, no edema. Pedal pulses 2+ present bilaterally. Neurologic: Alert and oriented x3. Nonfocal. Cranial nerves 2-12 grossly intact. LABORATORY: The patient's labs are from 02/22. WBC 10.01, RBC 3.61, hemoglobin 10.1, hematocrit is 33.6, platelet count is 228,000. Sodium 138, potassium 3.6, chloride 100, carbon dioxide 21, anion gap 17, BUN 4, creatinine is 0.5, glucose is 94, calcium is 8.4, phosphorus is 2.7, magnesium is 1.9. His urinalysis yesterday showed trace of protein, trace of ketones. MICROBIOLOGY: The patient's stool culture was negative for salmonella, shigella, Campylobacter or E coli. His stool for WBCs was negative. The patient's Clostridium difficile toxin was negative. The patient's Clostridium difficile antigen is positive. IMPRESSION AND PLAN: 1. Nausea and vomiting. 2. History of colon cancer s/p colon resection with colostomy. 3. Mild chemotherapy-induced colitis. 4. Abdominal pain 5. Diarrhea PLAN: Mr. Rodriguez is a 63-year-old male with a history of colon cancer, status post colon resection and colostomy. The patient's Clostridium difficile antigen was positive. The patient is currently receiving antibiotics, IV Flagyl 100 mL and Vancocin 125 mg p.o. every 6 hours for his C-diff. The patient is receiving gastrointestinal prophylaxis, Protonix 40 mg IV twice a day. He is on IV fluids normal saline with 20 of potassium at 75 mL/h. For his nausea and vomiting, the patient is on Phenergan 25 mg q.6 hours p.r.n. We will give the patient Bentyl for his abdominal cramps. We will continue to monitor the patient and follow the plan of care per PCP. This plan was discussed with Dr. Roper. Thank you for your consult. Please call us for any further questions or concerns. Dictated by ZEN Phillips for Leny Roper MD cc: Leny Roper MD MTDD
[2019-02-24] MEDS: MORPHINE IV PRN ×5 (02:32→20:00)
[2019-02-24] MEDS: VANCOCIN PO SCH ×3 (04:33→16:56)
[2019-02-24] MEDS: FLAGYL 500 MG/NS 500 MG/100 ML IVPB IV SCH ×3 (04:33→16:56)
[2019-02-24] MEDS: NS + KCL 20 MEQ 1,000 ML IV SCH ×2 (04:33→13:08)
[2019-02-24] MEDS: BENTYL PO SCH ×3 (06:34→16:54)
[2019-02-24 07:37] LABS: AGAP 16; BUN 5 mg/dL (8-22); CALCIUM 8.4 mg/dL (8.8-10.2); CHLORIDE 100 mmol/L (98-107); COSMO 269; CREATININE 0.5 mg/dL (0.7-1.2); ESTIMATED GFR > 60; GLUCOSE 98 mg/dL (70-104); POTASSIUM 3.6 mmol/L (3.5-5.1); SODIUM 136 mmol/L (136-145); TCO2 20 mmol/L (25-35)
[2019-02-24] MEDS: LOPRESSOR PO SCH ×2 (08:22→20:01)
[2019-02-24] MEDS: COZAAR PO SCH (08:22)
[2019-02-24] MEDS: PROTONIX IV SCH ×2 (08:22→20:01)
[2019-02-24] MEDS: XARELTO PO SCH (08:22)
--- NOTE | 2019-02-24 11:09 | PROGRESS NOTE ---
DATE: 02/24/2019 SUBJECTIVE: This patient's abdominal pain seems to be a little bit better. He is not having nausea, vomiting today, but he is still having diarrhea. I will continue to monitor. Gastroenterology Department as well as Hematology/Oncology Department on board. OBJECTIVE: Vital Signs: Temperature 98.2 degrees, pulse 110, respiratory rate 19, blood pressure 169/98, oxygen saturation 96 on room air. HEENT: Head normocephalic, no trauma, PERRLA. Neck: Supple. No JVD. No masses. Central trachea. Chest: Clear to auscultation. No wheezing. No rales. Abdomen: Soft is slightly distended. He is having generalized tenderness to palpation but no signs of peritoneal irritation. His pain is mostly at the level of the periumbilical area and around the colostomy bag on the left side. He has a and scar in the middle of the abdomen with no signs of problems. He has a green liquid stools. Neurological: He is sleepy, but arousable. He is oriented. He is following commands. LABORATORY: Sodium 136, potassium 3.6, chloride 100, bicarbonate 20, BUN 5, creatinine 0.5, glucose 98, calcium 8.4. ASSESSMENT AND PLAN: 1. Colitis probably secondary to Clostridium difficile infection. We have a positive antigen but negative toxin. As per the patient, he received antibiotics 3 to 4 weeks ago, continue with vancomycin by mouth and Flagyl IV. 2. Possible mild pancreatitis/duodenitis/colitis, as above. 3. Nausea vomiting. He is feeling a bit better today. He is tolerating a little bit of fluids, especially water. 4. Hypokalemia with hypomagnesemia, resolved. 5. Colon cancer followed by Dr. Zhou. 6. Hypertension. I have increased the dose of the Lopressor to 50 twice a day. His blood pressure is still a little bit high probably because of the pain, probably the absorption of the medication p.o. 0is also decreased, but he seems to be stable. cc: Josh Mascorro MD
--- NOTE | 2019-02-24 12:35 | GASTROENTEROLOGY PROGRESS NOTE ---
DATE: 02/24/2019 SUBJECTIVE: Mr. Rodriguez is a 63-year-old male resting in bed. The patient mentioned that last night he was not feeling well and was having nausea and vomiting, but this morning he has denied having one and is feeling better, he also denied any abdominal pain. OBJECTIVE: Vital Signs: Temperature 98.2 degrees, pulse 110, respirations 19, blood pressure 169/98, oxygen saturation 96% on room air. The patient's weight is 167 pounds. BMI is 28.7 kg/m2. General: He is alert, oriented x3, and in no acute distress. HEENT: Pale conjunctivae. No icterus. PERRL. Neck: Supple. Lungs: Clear to auscultation. Cardiovascular: Patient is tachycardic. Abdomen: Mildly distended, nontender. Has a colostomy on the left side. Active bowel sounds heard in all 4 quadrants. Extremities: No clubbing, no cyanosis, no edema. Pedal pulses 2+ present bilaterally. Neurological: Alert and oriented x3. LABORATORY DATA: The patient's hematology is from 02/22/2019. WBC 10.01, RBC 3.61, hemoglobin 10.1, hematocrit 33.6, platelet count is 228,000. Sodium 136, potassium 3.6, chloride 100, carbon dioxide 20, anion gap 16, BUN 5, creatinine is 0.5, glucose is 98, calcium is 8.4. IMPRESSION AND PLAN: 1. Nausea and vomiting. 2. Abdominal pain. 3. Clostridium difficile colitis. 4. History of colon cancer s/p colon resection and colostomy. 5. Anemia. PLAN: Mr. Rodriguez is a 63-year-old male with a history of colon cancer, status post colon resection and colostomy. The patient's Clostridium difficile antigen was positive. He is currently on antibiotics Flagyl and Vancocin. The patient is receiving GI prophylaxis, Protonix 40 mg IV. The patient is on antiemetic Phenergan for his nausea and vomiting. For his abdominal cramps, the patient is receiving Bentyl 10 mg p.o. 3 times a day. The patient is also on Culturelle. The patient is currently receiving normal saline with 20 of potassium at 75 mL. We will continue to monitor the patient and follow the plan of care per PCP. This plan was discussed with Dr. Gusman. Please call us for any further questions or concerns. Dictated by ZEN Phillips for Hernán Gusman MD cc: Hernán Gusman MD I have seen and examined the patient myself and I agree with the above plan of care. I have discussed the above plan of care with the patient and all questions were answered. Please call us with any further questions. MTDD
[2019-02-24] MEDS: PHENERGAN IV PRN ×2 (13:08→20:01)
[2019-02-24] MEDS: DURAGESIC 50 MICROGM/HR PATCH TD SCH (20:01)
[2019-02-24] MEDS: CULTURELLE PO SCH (20:01)
[2019-02-25] MEDS: MORPHINE IV PRN ×6 (00:25→21:07)
[2019-02-25] MEDS: FLAGYL 500 MG/NS 500 MG/100 ML IVPB IV SCH ×2 (00:25→05:24)
[2019-02-25] MEDS: VANCOCIN PO SCH ×5 (00:25→21:07)
[2019-02-25] MEDS: PHENERGAN IV PRN ×4 (03:18→21:07)
[2019-02-25] MEDS: NS + KCL 20 MEQ 1,000 ML IV SCH ×2 (04:55→21:08)
[2019-02-25] MEDS: BENTYL PO SCH ×3 (06:20→17:04)
--- NOTE | 2019-02-25 07:20 | Diag Imaging Result Doc PS360 ---
EXAM: CT HEAD W/O CONTRAST 02/25/2019 HISTORY: Fall,AMS,Pt. takes xarelto TECHNIQUE: This exam was performed using automated exposure control, adjustment of mA or kV according to patient size, and/or use of iterative reconstruction technique. COMMENT: There are no previous studies available for comparison. There is no evidence of mass effect, shift, bleed, or abnormal extra-axial fluid collection. There is opacification of the right maxillary sinus. The calvarium is intact. IMPRESSION: No evidence of acute intracranial disease. Right maxillary sinusitis. Electronically signed by Jaziel Calhoun 02/25/2019 7:17 AM
[2019-02-25 07:29] LABS: HEMATOCRIT 36.1 % (42.0-52.0); HEMOGLOBIN 10.9 g/dL (14.0-18.0); MCHC 30.2 g/dL (33-37); MCV 92.8 FL (81-99); MPV 10.7 FL (7.4-10.4); RBC 3.89 XMIL (4.7-6.1); RDW 17.9 % (11.5-14.5); WBC 12.36 X1000 (4.8-10.8)
[2019-02-25 07:56] LABS: AGAP 16; BUN 5 mg/dL (8-22); CALCIUM 8.7 mg/dL (8.8-10.2); CHLORIDE 100 mmol/L (98-107); COSMO 271; CREATININE 0.5 mg/dL (0.7-1.2); ESTIMATED GFR > 60; GLUCOSE 105 mg/dL (70-104); MAGNESIUM 1.6 mg/dL (1.5-2.7); PHOSPHORUS 2.5 mg/dL (2.7-4.5); POTASSIUM 3.4 mmol/L (3.5-5.1); SODIUM 137 mmol/L (136-145); TCO2 21 mmol/L (25-35)
[2019-02-25] MEDS: LOPRESSOR PO SCH ×2 (09:07→21:06)
[2019-02-25] MEDS: PROTONIX IV SCH ×2 (09:08→21:06)
[2019-02-25] MEDS: SODIUM CHLORIDE 0.9% INJ PRN ×2 (09:08→14:29)
[2019-02-25] MEDS: SODIUM CHLORIDE 0.9% INJ SCH ×2 (09:08→21:06)
[2019-02-25] MEDS: COZAAR PO SCH (09:08)
[2019-02-25] MEDS: CULTURELLE PO SCH ×2 (09:08→21:06)
[2019-02-25] MEDS ORDERED: POTASSIUM PHOSPHATE 15 MMOL in NS 250 ML IV ONE (10:30)
[2019-02-25] MEDS ORDERED: MAGNESIUM SULFATE 2 GM/S.W.I. 2 GM/50 ML IVPB IV ONE (13:11)
[2019-02-25] MEDS ORDERED: CARDIZEM PO ONE (13:13)
--- NOTE | 2019-02-25 13:36 | PROGRESS NOTE ---
DATE: 02/25/2019 SUBJECTIVE: This patient's abdominal pain seems to be a little bit better. He is still having some diarrhea but also seems to be getting better. I will continue with the same management for now. He has a positive antigen that showed C. Difficile, I do believe this patient can be discharged in the next 24 to 48 hours once he is tolerating more p.o., tomorrow hopefully I will advance his diet from liquid diet to a full liquid or soft diet, yesterday he had a couple episodes of nausea but no vomiting. OBJECTIVE: Vital Signs: Temperature 97.6 degrees, pulse 117, respiratory rate 19, blood pressure 171/105, oxygen saturation 100% on room air. HEENT: Head normocephalic, no trauma. PERRLA. Neck: Supple. No JVD. No masses. Central trachea. Chest: Clear to auscultation. No wheezing. No rales. Abdomen: Soft, slightly distended. He is having generalized tenderness to palpation but no signs of peritoneal irritation. His pain is mostly at the level of the periumbilical area and around the colostomy, he has a midline scar in the abdomen with no signs of problems. He is still having some liquid stools but he seems to be getting better and the amount is not that be big like admission. Neurological: This patient is awake, alert, he is oriented. LABORATORY: WBC 12.3, hemoglobin 10.9, hematocrit 36.1, platelet 269,000. Sodium 137, potassium 3.4, chloride 100, bicarbonate 21, BUN 5, creatinine 0.5, glucose 105, calcium 8.7, phosphorus 2.5, magnesium 1.6. ASSESSMENT AND PLAN: 1. Colitis probably secondary to Clostridium difficile infection, we have a positive antigen but a negative toxin. As per the patient, he received antibiotics 3 to 4 weeks ago. Continue with vancomycin by mouth and Flagyl IV. 2. Possible mild duodenitis/colitis, as above. 3. Nausea and vomiting, this is better, especially the vomiting but he is still having nausea, he is tolerating clear liquids on and off. 4. Hypokalemia with hypomagnesemia, I will replace both. 5. Hypophosphatemia. This patient will receive potassium phosphate. 6. Colon cancer followed by Dr. Zhou. 7. Hypertension. I have increased the dose of Lopressor to 50 twice a day, I will give him an a dose of Cardizem 30 right now to see if that can control better the heart rate and the blood pressure. cc: Josh Mascorro MD
--- NOTE | 2019-02-25 15:02 | GASTROENTEROLOGY PROGRESS NOTE ---
DATE: 02/25/2019 SUBJECTIVE: Mr. Rodriguez is a 63-year-old, male resting in bed. The patient is complaining of being nauseated but he has denied any vomiting and also denied any abdominal pain. OBJECTIVE: Vital Signs: Temperature 97.6 degrees, pulse 117, respirations 19, blood pressure 171/105, oxygen saturation 100% on room air. The patient's weight is 167 pounds. BMI is 28.7 kg/m2. General: He is alert, oriented x3, and in no acute distress. HEENT: Pale conjunctivae. No icterus. PERRL. Neck: Supple. Lungs: Clear to auscultation. Cardiovascular: The patient is tachycardic. Abdomen: Mildly distended, nontender. Has a colostomy on the left side. Active bowel sounds heard in all 4 quadrants. Extremities: No clubbing, no cyanosis, no edema. Pedal pulses 2+ present bilaterally. Neurologic: Alert and oriented x3. Laboratory Data: WBCs are 12.36, RBCs 3.89, hemoglobin is 10.9, hematocrit is 36.1, platelet count is 269,000. Sodium is 137, potassium is 3.4, chloride 100, carbon dioxide 21, anion gap 16, BUN 5, creatinine is 0.5, glucose is 105, calcium is 8.7, phosphorus 7.5, magnesium is 1.6. The patient had a head CT done today and it showed no evidence of acute intracranial disease. Right maxillary sinusitis. IMPRESSION: Cdiff N/V Abdominal pain History of colon cancer Anemia PLAN: Mr. Rodriguez is a 63-year-old, male with a history of colon cancer, status post colon resection and colostomy. GI has been following him for his diarrhea, nausea, and vomiting in the setting of CDI. The patient is on vancomycin 125 QID and flagyl. For his nausea and vomiting, he is on Phenergan 25 mg IV every 6 hours. The patient is receiving Protonix 40 mg IV twice a day. The patient's potassium is 3.4, his calcium is 8.7, and his phosphorus is 2.5. He is currently receiving normal saline with 20 of potassium at 75 mL per hour. He is also receiving potassium phosphate 62 mL IV and magnesium sulfate at 50 mL IV as per PCP. We have discontinued the patient's Flagyl. We will continue with Vancocin, monitor the patient, and follow the plan of care per PCP. This plan has been discussed with Dr. Garcia. Please call us for any further questions or concerns. Dictated by ZEN Phillips for Maury Garcia MD Physician Attestation I have seen and examined the patient. I have discussed and reviewed the note by Bernie ZALDIVAR and agree with findings and plan as documented. Stop flagyl. Continue vancomycin, PPI, and antiemetics. He is still having some N/V. On clears. Will continue to monitor labs and I/O, ostomy output. MTDD
[2019-02-25] MEDS: CARDIZEM PO SCH (21:07)
[2019-02-26] MEDS: MORPHINE IV PRN ×6 (01:08→23:43)
[2019-02-26] MEDS: VANCOCIN PO SCH ×5 (01:08→23:43)
[2019-02-26] MEDS: PHENERGAN IV PRN ×3 (05:01→19:35)
[2019-02-26] MEDS: NS + KCL 20 MEQ 1,000 ML IV SCH ×4 (05:02→23:43)
[2019-02-26] MEDS: BENTYL PO SCH ×3 (06:27→16:22)
[2019-02-26 08:16] LABS: BASO# 0.05 X1000 (0.0-0.2); BASO% 0.4 % (0.0-0.8); EOS# 0.05 X1000 (0.0-0.7); EOS% 0.4 % (0.0-10.0); HEMATOCRIT 34.8 % (42.0-52.0); HEMOGLOBIN 10.3 g/dL (14.0-18.0); IMM GRAN% 1.6 % (0.0-0.5); LYMPH# 1.56 X1000 (1.2-3.4); LYMPH% 12.3 % (20.5-51.1); MCH 27.5 PG (27-31); MCHC 29.6 g/dL (33-37); MCV 92.8 FL (81-99); MONO# 1.16 X1000 (0.11-0.59); MONO% 9.2 % (1.7-9.3); MPV 10.1 FL (7.4-10.4); NEUT# 9.65 X1000 (1.4-6.5); NEUT% 76.1 % (42.2-75.2); PLT 250 X1000 (130-400); RBC 3.75 XMIL (4.7-6.1); RDW 18.1 % (11.5-14.5); WBC 12.67 X1000 (4.8-10.8)
[2019-02-26 09:08] LABS: AGAP 14; BUN 4 mg/dL (8-22); CALCIUM 8.5 mg/dL (8.8-10.2); CHLORIDE 99 mmol/L (98-107); COSMO 268; CREATININE 0.5 mg/dL (0.7-1.2); ESTIMATED GFR > 60; GLUCOSE 84 mg/dL (70-104); POTASSIUM 4.3 mmol/L (3.5-5.1); SODIUM 136 mmol/L (136-145); TCO2 23 mmol/L (25-35)
[2019-02-26] MEDS: CARDIZEM PO SCH ×2 (09:20→20:25)
[2019-02-26] MEDS: LOPRESSOR PO SCH ×2 (09:20→20:25)
[2019-02-26] MEDS: SODIUM CHLORIDE 0.9% INJ SCH ×2 (09:20→20:25)
[2019-02-26] MEDS: CULTURELLE PO SCH ×2 (09:20→20:25)
[2019-02-26] MEDS: COZAAR PO SCH (09:20)
[2019-02-26] MEDS: PROTONIX IV SCH ×2 (09:20→20:25)
[2019-02-26] MEDS: XARELTO PO SCH (09:20)
--- NOTE | 2019-02-26 10:31 | GASTROENTEROLOGY PROGRESS NOTE ---
DATE: 02/26/2019 SUBJECTIVE: Mr. Rodriguez is a 63-year-old, male, resting in bed. The patient is still complaining of being nauseated, but has denied any vomiting or abdominal pain. OBJECTIVE: Vital Signs: Temperature 98 degrees, pulse 106, respirations 20, blood pressure 159/100, oxygen saturation 97% on room air. The patient's weight is 167 pounds, BMI is 28.7 kg/m2. General: He is alert and oriented x3, and in no acute distress. HEENT: Pale conjunctivae. No icterus. PERRL. Neck: Supple. Lungs: Clear to auscultation. Cardiovascular: The patient is tachycardic. Abdomen: Mildly distended, nontender. Has a colostomy in the left side. Active bowel sounds heard in all 4 quadrants. Extremities: No clubbing, no cyanosis, no edema. Pedal pulses 2+ present bilaterally. Neurologic: He is alert and oriented x3. IMAGING AND LABORATORY DATA: WBCs are 12.67, RBC 3.75, hemoglobin 10.3, hematocrit is 34.8, platelet count is 250,000. Sodium is 136, potassium is 4.3, chloride is 99, carbon dioxide 23, anion gap is 14, BUN is 4, creatinine is 0.5, glucose is 84, calcium is 8.5. The patient had a head CT done yesterday, and it showed that there is no evidence of intracranial disease, but there is right maxillary sinusitis. IMPRESSION AND PLAN: C-diff Nausea and vomiting Abdominal pain History of colon cancer Anemia PLAN: Mr. Rodriguez is a 63-year-old, male with a history of colon cancer, status post colon resection and colostomy. GI has been following him for his diarrhea, nausea, and vomiting. His diarrhea seems to be resolving, but the patient is still complaining of nausea. For his Clostridium difficile, the patient is on Vancocin 125 mg every 6 hours. The patient is on Phenergan for his nausea and vomiting. We plan to do an EGD tomorrow. We have discussed the risks, benefits, and alternatives of the procedure to the patient. The patient acknowledges understanding of the plan of care. Further plan of care will be based on the EGD findings. This plan was discussed with Dr. Garcia. Please call us for any further questions or concerns. Dictated by ZEN Phillips for Maury Garcia MD Physician Attestation I have seen and examined the patient. I have discussed and reviewed the note by Bernie ZALDIVAR and agree with findings and plan as documented. LAURY
[2019-02-26] MEDS: SODIUM CHLORIDE 0.9% INJ PRN (11:24)
--- NOTE | 2019-02-26 16:46 | PROGRESS NOTE ---
DATE: 02/26/2019 SUBJECTIVE: This patient's abdominal pain seems to be a little bit better. He is still having some diarrhea. He has been treated for Clostridium difficile colitis with a positive antigen, but negative toxin. Gastroenterology department evaluated this patient. It looks like he will go for an endoscopy either tomorrow or Sunday. As per Gastroenterology's note is going to be tomorrow, but this patient is still not NPO. We will continue to monitor. OBJECTIVE: Vital Signs: Temperature 97.5 degrees, pulse 114, respiratory rate 19, blood pressure 144/94. Oxygen saturation 98 on room air. HEENT: Head normocephalic. No trauma. PERRLA. Neck: Supple. No JVD. No masses. Central trachea. Chest: Clear to auscultation. No wheezing. No rales. Abdomen: Soft, slightly distended, but he does have generalized tenderness to palpation mostly at the level of the periumbilical area and around the colostomy. He has a colostomy on the left side and he has also a chronic scar in the middle of the abdomen. He has green liquid stools in the bag. Neurological: The patient is awake, alert. He is oriented x3. No focal deficit but generalized weakness, he is still having nausea but no vomiting. LABORATORY: WBC 12.6, hemoglobin 10.3, hematocrit 34.8, platelets 250,000. Sodium 136, potassium 4.3, chloride 99, bicarbonate 23, BUN 4, creatinine 0.5, glucose 84, calcium 8.5. ASSESSMENT AND PLAN: 1. Colitis, likely secondary to Clostridium difficile infection. As per the patient, he received antibiotics around 3 to 4 weeks ago. I have placed this patient on vancomycin p.o., but this patient is having nausea and vomiting, so he is not able to keep too much food down, he has been tolerating water and Sprite. So this patient was started on Flagyl as well a few days ago. I think the diarrhea is getting better. 2. Possible mild duodenitis, colitis. As above. This is based on the CT scan report, possible mild inflammation of the pancreas as well initially. 3. Colon cancer followed by Dr. Zhou. No recent chemotherapy. 4. Hypertension stable. His blood pressure is still slightly elevated and I placed this patient on beta blockers and diltiazem as well. Overall this patient seems to be having less diarrhea, but he is still having some nausea. He has been tolerating some liquids like water and Sprite, he will be scoped by Gastroenterology Department probably tomorrow or the day after tomorrow, we will monitor. cc: Josh Mascorro MD
[2019-02-27] MEDS: PHENERGAN IV PRN ×3 (03:35→17:22)
[2019-02-27] MEDS: MORPHINE IV PRN ×5 (03:35→21:49)
[2019-02-27] MEDS: VANCOCIN PO SCH ×4 (05:41→21:48)
[2019-02-27] MEDS: BENTYL PO SCH (07:48)
[2019-02-27] MEDS: SODIUM CHLORIDE 0.9% INJ SCH ×2 (08:17→21:48)
[2019-02-27] MEDS: PROTONIX IV SCH ×2 (08:17→21:47)
[2019-02-27 08:54] LABS: BASO# 0.05 X1000 (0.0-0.2); BASO% 0.4 % (0.0-0.8); EOS# 0.05 X1000 (0.0-0.7); EOS% 0.4 % (0.0-10.0); HEMATOCRIT 34.1 % (42.0-52.0); HEMOGLOBIN 10.1 g/dL (14.0-18.0); IMM GRAN# 0.16 X1000 (0.0-0.04); IMM GRAN% 1.4 % (0.0-0.5); LYMPH# 1.43 X1000 (1.2-3.4); LYMPH% 12.1 % (20.5-51.1); MCH 27.6 PG (27-31); MCHC 29.6 g/dL (33-37); MCV 93.2 FL (81-99); MONO# 1.13 X1000 (0.11-0.59); MONO% 9.6 % (1.7-9.3); MPV 10.3 FL (7.4-10.4); NEUT# 9.01 X1000 (1.4-6.5); NEUT% 76.1 % (42.2-75.2); PLT 257 X1000 (130-400); RBC 3.66 XMIL (4.7-6.1); RDW 17.9 % (11.5-14.5); WBC 11.83 X1000 (4.8-10.8)
[2019-02-27] MEDS ORDERED: DIPRIVAN 1% ONE (09:02)
[2019-02-27] MEDS ORDERED: XYLOCAINE-MPF 2% ONE (09:02)
[2019-02-27 09:12] LABS: ESTIMATED GFR > 60
[2019-02-27 09:23] LABS: AGAP 13; ALB/GLOB RATIO 0.6; ALBUMIN 2.6 g/dL (3.5-5.0); ALKALINE PHOSPHATASE 141 U/L (32-122); BUN 5 mg/dL (8-22); CALCIUM 8.4 mg/dL (8.8-10.2); CHLORIDE 100 mmol/L (98-107); COSMO 268; CREATININE 0.5 mg/dL (0.7-1.2); GLUCOSE 105 mg/dL (70-104); GOT 15 U/L (10-34); GPT < 5 U/L (10-44); MAGNESIUM 1.7 mg/dL (1.5-2.7); PHOSPHORUS 2.7 mg/dL (2.7-4.5); POTASSIUM 3.7 mmol/L (3.5-5.1); SODIUM 135 mmol/L (136-145); TCO2 22 mmol/L (25-35); TOTAL BILIRUBIN 0.25 mg/dL (0.20-1.00); TOTAL PROTEIN 6.6 g/dL (6.3-8.3)
--- NOTE | 2019-02-27 11:15 | ENDOSCOPY OPERATIVE NOTE ---
[facility] ENDOSCOPY OPERATIVE NOTE , EGD PROCEDURE REPORT EXAM DATE: 02/27/2019 PATIENT NAME: Irwin Rodriguez Sr MR#: [id number] BIRTHDATE: 1955 ATTENDING: Hernán Gusman MD STATUS: inpatient PATIENT DAY COORDINATOR: INDICATIONS: The patient is a 63 yr old male here for an EGD due to Nausea, vomiting, Abdominal Pain , Colon cancer since [address] Zhou, Homa diff colitis, Anemia Hct 34%. PROCEDURE PERFORMED: EGD, diagnostic MEDICATIONS: Per Anesthesia ESTIMATED BLOOD LOSS: None CONSENT: The patient understands the risks and benefits of the procedure and understands that these r isks include, but are not limited to: sedation, allergic reaction, infection, perforation and/or bleeding. Alternative means of evaluation and treatment include, among others: physical exam, x-rays, and/or surgical intervention. The patient elects to proceed with this endoscopic procedure. DESCRIPTION OF PROCEDURE: During pre-op preparation period all mechanical and medical equipment was c hecked for proper function. Hand hygiene and appropriate measures for infection prevention was taken. After the risks, benefits and alternatives of the procedure were thoroughly explained, Informed consent was verified, confirmed and timeout was successfully executed by the treatment team. The patient was anesthetized with topical anesthesia and the endoscope was introduced through the mouth and advanced to the second portion of the duodenum. Retroflexion wa s performed in the stomach and revealed no abnormalities. The gastroscope was then slowly withdrawn and removed. The p atient's toleration of the procedure was good. ESOPHAGUS: Reflux esophagitis was found in the distal esophagus. Esophagitis was LA Class A: One or more mucosal breaks < 5 mm in maximal length. STOMACH: Mild acute gastritis (inflammation) was found in the gastric antrum and on the greater curva ture of the gastric body. DUODENUM: Moderate duodenal inflammation was found in the duodenal bulb, 1st part duodenum, and 2nd p art duodenum. A medium sized and traversable acquired stenosis was found in the 2nd part of the duodenum and 1st part duodenum likely from persistent duodenitis. No biopsies were obtained as the patient is on Xarelto. ADVERSE EVENTS: There were no complications. IMPRESSIONS: 1. Reflux esophagitis in the distal esophagus 2. Acute gastritis (inflammation) was found in the gastric antrum and on the greater curvature of th e gastric body 3. Duodenal inflammation was found in the duodenal bulb, 1st part duodenum, and 2nd part duodenum 4. Acquired stenosis was found in the 2nd part of the duodenum and 1st part duodenum RECOMMENDATIONS: 1. PPI BID for 90 days Carafate 1g every 6 hours for 6 weeks Repeat EGD in 3 months Ensure TID for nutrition Avoid NSAIDs 2. Begin an anti-reflux lifestyle: avoid acidic foods and drinks (like coffee and soda), do not lie down three hours after eating, elevate the head of your bed 6 to 9 inches, stop smokiing and reduce weight if needed. REPEAT EXAM: Return in 3 months for EGD. Hernán Gusman MD eSigned: Hernán Gusman MD 02/27/2019 11:14 AM CC: CPT CODES: 60074 Upper gastrointestinal endoscopy including esophagus, stomach, and either the du odenum and/or jejunum as appropriate; diagnostic, with or without collection of specimen(s) by brushing or washing (separate procedure) ICD CODES: The ICD and CPT codes recommended by this software are interpretations from the data that the [facility] staff has captured with the software. The verification of the translation of this report to the ICD and CPT co sai and modifiers is the sole responsibility of the health care institution and practicing physician where this report was generated. [employer] will not be held responsible for the validity of the ICD and CPT codes i ncluded on this report. [employer] assumes no liability for data contained or not contained herein. CPT is a registered tra demark of the [employer]. PATIENT NAME: Irwin Rodriguez Sr MR#: [id number]
[2019-02-27] MEDS: CARDIZEM PO SCH ×2 (13:04→21:48)
[2019-02-27] MEDS: COZAAR PO SCH (13:05)
[2019-02-27] MEDS: LOPRESSOR PO SCH ×2 (13:05→21:48)
[2019-02-27] MEDS: CARAFATE LIQUID PO SCH ×2 (13:05→18:47)
[2019-02-27] MEDS: XARELTO PO SCH (13:05)
[2019-02-27] MEDS: CULTURELLE PO SCH ×2 (13:05→21:48)
[2019-02-27] MEDS: NS + KCL 20 MEQ 1,000 ML IV SCH ×2 (17:25→21:48)
--- NOTE | 2019-02-27 18:45 | PROGRESS NOTE ---
DATE: 02/27/2019 SUBJECTIVE: This morning Mr. Rodriguez refers to be doing okay. He underwent EGD early on today. He said he has been started on clear liquids afterwards, and he seems to have been tolerating this, and he has been advanced to a full liquid diet. OBJECTIVE: Vital Signs: Blood pressure is 180/106, pulse is 115, respirations 18, temperature 98.1. General: Mr. Rodriguez is a 63-year-old gentleman. He is in bed in no distress. HEENT: Mucosa is pink and moist. Anicteric. Acyanotic. Neck: Supple. Chest: Good air entry bilaterally. There are no crepitations, no rhonchi. Cardiovascular: Regular rate and rhythm. GI: Abdomen is soft, minimally tender on palpation around the periumbilical area and the colostomy site. There is a colostomy on the left side. The bag has normal fecal material. 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 LABORATORY DATA: WBCs 11.83, hemoglobin 10.1, platelet count of 257. Chemistry is also reviewed. DIAGNOSTIC DATA: The EGD report has been reviewed. The impression seems to suggest that there is reflux esophagitis. There is also acute gastritis and duodenitis in the bulb. There is also an acquired stenosis found in the 2nd part of the duodenum, and the first part. Recommendations have been noted. ASSESSMENT/PLAN: 1. Clostridium difficile colitis. The patient is currently on vancomycin. 2. Duodenitis with duodenal stenosis. The patient has been started on a proton pump inhibitor and Carafate. 3. Gastroesophagitis. 4. History of invasive sigmoid colon adenocarcinoma. The patient is status post colon resection with end colostomy. Follows up with Dr. Zhou. 5. Hypertension. Will continue titrating blood pressure medications. 6. Distended gallbladder on imaging noted. cc: Joe Gonzalez MD
[2019-02-27] MEDS: ICAR-C PO SCH (21:48)
[2019-02-27] MEDS: DURAGESIC 50 MICROGM/HR PATCH TD SCH (21:48)
[2019-02-28] MEDS: CARAFATE LIQUID PO SCH ×4 (00:13→18:21)
[2019-02-28] MEDS: MORPHINE IV PRN ×5 (02:04→22:23)
[2019-02-28] MEDS: VANCOCIN PO SCH ×5 (02:05→22:23)
[2019-02-28] MEDS: PHENERGAN IV PRN ×3 (05:19→17:42)
[2019-02-28] MEDS: NS + KCL 20 MEQ 1,000 ML IV SCH ×2 (06:21→10:42)
--- NOTE | 2019-02-28 10:11 | Diag Imaging Result Doc PS360 ---
EXAM: US GB < RUQ (LIMITED) HISTORY: persistent N/V. Distended Gallbladder TECHNIQUE: Right upper quadrant ultrasound COMPARISON: None. FINDINGS: The gallbladder remains abnormally distended measuring approximately 5 x 6 x 13 cm. No wall thickening. No stones. The common bile that measures 5 mm. No ascites in the right quadrant. Normal right kidney. No hydronephrosis. The pancreas, aorta, and inferior vena cava are all obscured. No focal hepatic normality. IMPRESSION: Abnormally distended gallbladder Electronically signed by Gilbert Rinaldi 02/28/2019 10:09 AM
[2019-02-28] MEDS: COZAAR PO SCH (10:42)
[2019-02-28] MEDS: PROTONIX IV SCH ×2 (10:42→22:16)
[2019-02-28] MEDS: XARELTO PO SCH (10:42)
[2019-02-28] MEDS: CULTURELLE PO SCH ×2 (10:42→23:07)
[2019-02-28] MEDS: ICAR-C PO SCH ×2 (10:42→23:06)
[2019-02-28] MEDS: CARDIZEM PO SCH ×2 (10:42→23:06)
[2019-02-28] MEDS: LOPRESSOR PO SCH ×2 (10:42→22:17)
[2019-02-28] MEDS: LR 1,000 ML IV SCH ×2 (12:26→22:16)
[2019-02-28] MEDS: CENTRUM SILVER PO SCH (12:26)
--- NOTE | 2019-02-28 14:12 | GASTROENTEROLOGY PROGRESS NOTE ---
DATE: 02/28/2019 . SUBJECTIVE: Mr. Michael Dale is a 63-year-old male resting in bed. The patient has denied any nausea, vomiting, but he is still complaining of abdominal tenderness. OBJECTIVE: Vital Signs: Temperature 98.2 degrees, temperature 98.2, pulse 110, respirations 16, blood pressure 159/101, oxygen saturation 98 percent on room air. The patient's weight is 167 pounds, BMI is 28.7 kg/m2. General: He is alert, oriented x3 and in no acute distress. HEENT: Pale conjunctivae. No icterus. PERRL. Neck: Supple. Lungs: Clear to auscultation. Cardiovascular: Patient is tachycardic. Abdomen: Distended, tender. Has an ostomy on the left side. Hypoactive bowel sounds heard in all 4 quadrants. Extremities: No clubbing, no cyanosis, no edema. Pedal pulse is 2+ and present bilaterally. Neurologic: He is alert, oriented x3. LABORATORY DATA: WBC 11.83, RBC 3.66, hemoglobin 10.1, hematocrit is 34.1, platelet count is 1257. The patient's sodium is 135, potassium 3.7, chloride 100, carbon dioxide 22, anion 13, BUN 5, creatinine is 0.5, glucose 105, calcium 8.4, phosphorus 2.7, magnesium 1.7. Total bilirubin 0.25, AST 15, ALT less than 5, alkaline phos 141. IMAGING: Abdominal ultrasound has shown that the patient has got abnormally distended gallbladder. IMPRESSION AND PLAN: - Clostridium difficile. - Nausea and vomiting. - Abdominal pain. - History of colon cancer. - Anemia. - Reflux esophagitis PLAN: Mr. Rodriguez is a 63-year-old male with a history of colon cancer, status post colon resection and colostomy. GI has been following him as far as diarrhea, nausea and vomiting. An EGD was done yesterday and showed that the patient had got reflux esophagitis in the distal esophagus, acute gastritis in the gastric antrum and on the greater curvature of the gastric body. Duodenal inflammation was found in the duodenal bulb, first part and second part of the duodenum. Acquired stenosis was found in the second part of the duodenum and the first part of the duodenum. The patient is currently on PPI twice a day, and we will continue that for 3 months. He is receiving Carafate 1 g every 6 hours. We will repeat an EGD in 3 months. The patient is advised to avoid NSAIDs and follow GERD lifestyle. We will follow him up as an outpatient in 3 months for a repeat EGD. This plan was discussed with Dr. Garcia. Please call us for any further questions or concerns. Dictated by ZEN Phillips for Maury Garcia MD Physician Attestation I have seen and examined the patient. I have discussed and reviewed the note by Bernie ZALDIVAR and agree with findings and plan as documented. [facility]
--- NOTE | 2019-02-28 18:25 | PROGRESS NOTE ---
DATE: 02/28/2019 SUBJECTIVE: This morning Mr. Rodriguez refers to continue hurting especially going to his back. He also said he cannot tolerate anything oral. He is still nauseated, and has been vomiting. Of note, Mr. Rodriguez had an EGD yesterday. OBJECTIVE: Vital Signs: Current vitals show blood pressure 165/80 with a pulse of 61, respirations 16, and temperature 97.4 degrees. Patient is saturating 100% on room air. General: Mr. Rodriguez is a 63-year-old gentleman. He is in bed. He did not seems to be in any cardiopulmonary distress. HEENT: Mucosa was pink and moist. Anicteric. Acyanotic. Neck: Supple. No JVD. Respiratory: There is good air entry bilaterally. No crepitations. No rhonchi. There was a port on the right anterior chest wall. Cardiovascular: Regular rate and rhythm. There were no murmurs. No rubs. No gallops. GI: Abdomen was soft. Minimally tender in the periumbilical area. There is a colostomy on the left side with a bag full of fecal material. 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 LABORATORY/DIAGNOSTIC DATA: The patient's C-reactive protein is elevated. Lipase is also elevated. Of note, Mr. Rodriguez's CAT scan on admission did show some acute pancreatitis and/or duodenitis. His gallbladder was substantially dilated. A repeat ultrasound this morning continues to show abnormally distended gallbladder. ASSESSMENT: 1. Clostridium difficile colitis on admission. Patient is on p.o. vancomycin. 2. Duodenitis with duodenal stenosis. The patient is on PPI and Carafate. GI is on board. 3. Persistent abdominal pain associated with intractable nausea and vomiting. The patient has not shown any remarkable improvement with the medical management. His gallbladder continues to look remarkably distended so we will consult Surgery to evaluate him. 4. Pancreatitis on admission with the minimally dilated gallbladder. Unsure if this is related to any stone. The patient's lipase is not ridiculously extremely high. However, he continues to be very symptomatic. So, in general, Mr. Rodriguez continues to be symptomatic, even after the GI evaluation as well as the current medical management. He remains p.o. intolerant, and continue with abdominal pain. Ultrasound this morning continues to show abnormally distended gallbladder. We are going to get surgery to evaluate him. cc: Joe Gonzalez MD MTDD
[2019-02-28] MEDS: SODIUM CHLORIDE 0.9% INJ SCH (22:16)
[2019-03-01] MEDS: PHENERGAN IV PRN ×3 (01:27→20:41)
--- NOTE | 2019-03-01 03:11 | GENERAL SURGERY CONSULTATION ---
DATE: 02/28/2019 REASON FOR CONSULTATION: Distention of the gallbladder. CHIEF COMPLAINT: Nausea. HISTORY OF PRESENT ILLNESS: This is a 63-year-old gentleman who has a history of perforated colon cancer who has underwent adjuvant therapy and a Santa's procedure by Dr. Schmitt a couple years ago. He said over the last month he has had some diarrhea, nausea, vomiting. He is admitted for further evaluation. CT scan that showed a dilated gallbladder. He has noted loose stools per his ostomy, but no blood and he has had an EGD that showed esophagitis, gastritis, duodenal inflammation at duodenal bulb and apparent stenosis of the 2nd portion of duodenum. He started on PPI and Carafate therapy. He was also found to have C diff colitis and is being treated for that. I was consulted because he had a follow-up ultrasound that did not show gallstones or thickening of the gallbladder wall, but showed distention of the gallbladder. He has had LFTs that were normal with the exception of mildly elevated alkaline phosphatase this admission. Lipase was 153 today. MEDICAL HISTORY: 1. Colon cancer with recent chemotherapy. 2. Hypertension. 3. Diabetes. SURGICAL HISTORY: 1. He has had a Santa's procedure. 2. A port placement. SOCIAL HISTORY: He quit smoking 10 years ago. No current alcohol or drugs. FAMILY HISTORY: Reviewed and negative for cancer. MEDICATIONS: I reviewed his medication list. REVIEW OF SYSTEMS: A 10-point review of systems is negative other what is mentioned in his HPI. He is on p.o. vancomycin and Xarelto. PHYSICAL EXAMINATION: General: He is alert. He has had no fevers, no acute distress, but he has recently vomited in the emesis basin. Vital signs: Intermittent low-grade tachycardia, blood pressure 152/98, oxygen saturation is 98% on room air. Cardiovascular: Sinus tachycardia. Pulmonary: No increased work of breathing. Abdomen: Soft. Midline incision. Left lower quadrant colostomy is pink with stool in the bag that is liquid. Integument: Warm and dry. Psychiatric: Appropriate affect. Neurologic: No gross deficits. Peripheral vascular: No upper extremity edema. LABORATORY DATA: His white count was normal yesterday at 11, hematocrit 34. Creatinine 0.5, bilirubin is normal. AST, ALT were normal, alkaline phosphatase mildly elevated 141, lipase 153. I have reviewed his imaging, abdominal ultrasound, his endoscopy report as well as CT scan of the abdomen and pelvis. ASSESSMENT AND PLAN: This is a 63-year-old gentleman with nausea, vomiting. Does not really describe abdominal discomfort to me, mostly nausea, vomiting and loose stools. I do not see any evidence of cholecystitis or biliary obstruction. His gallbladder is prominent, which you can see with chronic NPO status and nausea, vomiting. He is on chronic fentanyl patch and he does seem to have some degree of pancreatitis with elevation of his lipase. Given these findings, I agree with the p.o. vancomycin for his colitis. I would otherwise recommend IV hydration, NPO and bowel rest and see if we can allow his symptoms to resolve. He is being treated for his gastritis, duodenitis appropriately. He is anticoagulated. He would be very high risk for an open cholecystectomy in the setting of C diff colitis. I would advise against this at this juncture, but we will follow along. cc: Josselin Newton MD
[2019-03-01] MEDS: MORPHINE IV PRN ×2 (03:12→09:19)
[2019-03-01] MEDS: CARAFATE LIQUID PO SCH ×5 (03:55→23:30)
[2019-03-01] MEDS: VANCOCIN PO SCH ×4 (06:16→23:31)
[2019-03-01] MEDS: LOPRESSOR PO SCH ×2 (09:21→20:42)
[2019-03-01] MEDS: CARDIZEM PO SCH ×2 (09:21→20:42)
[2019-03-01] MEDS: COZAAR PO SCH (09:21)
[2019-03-01] MEDS: CENTRUM SILVER PO SCH (09:21)
[2019-03-01] MEDS: XARELTO PO SCH (09:21)
[2019-03-01] MEDS: CULTURELLE PO SCH ×2 (09:21→20:42)
[2019-03-01] MEDS: ICAR-C PO SCH ×2 (09:21→20:42)
[2019-03-01] MEDS: SODIUM CHLORIDE 0.9% INJ SCH (09:21)
[2019-03-01] MEDS: PROTONIX IV SCH ×2 (09:22→20:42)
[2019-03-01] MEDS: SODIUM CHLORIDE 0.9% INJ PRN (09:22)
--- NOTE | 2019-03-01 11:30 | Diag Imaging Result Doc PS360 ---
EXAM: KUB ABDOMEN 03/01/2019 HISTORY: SBO TECHNIQUE: KUB COMMENT: There is mild curvature of the thoracolumbar spine with convexity to the right. There is gas and stool in the transverse colon. There is also some stool in the rectum. The small bowel and stomach are not distended. There is an apparent descending colostomy. IMPRESSION: Nonspecific abdomen. No evidence of small bowel obstruction. Electronically signed by Jaziel Calhoun 03/01/2019 11:28 AM
[2019-03-01] MEDS: LR 1,000 ML IV SCH ×3 (11:40→23:30)
[2019-03-01] MEDS: OFIRMEV 1000 MG/ISOTONIC SOLN 1,000 MG/100 ML BOTTLE IV PRN ×2 (12:54→21:48)
--- NOTE | 2019-03-01 14:08 | PROGRESS NOTE ---
DATE: 03/01/2019 SUBJECTIVE: This morning Mr. Rodriguez refers to continue nauseated and abdominal discomfort. He said he had very minimal output in the ostomy. OBJECTIVELY: Vitals: Blood pressure is 150/99, pulse of 116, respirations 16, temperature is 98.1 degrees. General: Mr. Rodriguez is a 63-year-old gentleman. He is in bed, no distress. Mucosa is pink and moist. Anicteric. Acyanotic. Neck: Supple. Chest: Good air entry bilateral. There were no crepitations, no rhonchi. Cardiovascular: Regular rate and rhythm. No murmurs, no rubs, no gallops. GI: Abdomen is soft. It is distended. There is an old infraumbilical surgical scar. There is also a left colostomy bag. 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 There is no focal deficit. LABORATORY DATA: None for today. An ultrasound which was done yesterday continues to show abnormally distended gallbladder. ASSESSMENT: 1. Clostridium difficile colitis on admission. Patient is on p.o. vancomycin for 10 days duration. 2. Duodenitis with duodenal stenosis. The patient is on PPI and Carafate. GI is on board. 3. Persistent abdominal discomfort with nausea and vomiting. We will continue symptomatic management. We will also get a KUB to rule out any potential constipation. 4. Abnormally dilated gallbladder. Patient has been evaluated by surgery. Recommendation is to continue medical management for now. 5. Mildly elevated pancreatic enzymes concerning for pancreatitis. Mr. Rodriguez is clinically stable. However, he continues to complain of nauseation. I will discontinue his morphine for now. I will also get a KUB and re-evaluate him later. Patient has been seen by surgery and they recommend to continue medical management for now. cc: Joe Gonzalez MD MTDD
[2019-03-01 15:23] LABS: CHOLESTEROL 133 mg/dL (0-200); HDL 32 mg/dL (35-55); LDL 68 mg/dL; TRIGLYCERIDES 164 mg/dL (39-160); VLDL 33 mg/dL
--- NOTE | 2019-03-01 15:50 | GENERAL SURGERY PROGRESS NOTE ---
DATE: 03/01/2019 SUBJECTIVE: Complaining of left-sided abdominal discomfort, some nausea, diminished appetite. No fevers. OBJECTIVE: Vital signs: Heart rate is still in the low 100s, blood pressure 166/99, oxygen saturation 97%. General: He is alert. HEENT: No scleral icterus. Cardiovascular: Sinus tachycardia. Abdomen: Soft. He seems to be tender throughout even in his upper thigh when I palpate. His ostomy is pink, viable with liquid stool in the bag. LABORATORY: I reviewed his labs. Glucose 99. He had a lipase of 153 yesterday but nothing newer than that. ASSESSMENT AND PLAN: A 63-year-old gentleman with multiple issues. 1. He has Clostridium difficile colitis. 2. He has pancreatitis. 3. He had duodenitis with possible stricture. 4. History of colon cancer, recent chemotherapy. 5. Status post Santa's procedure a couple years ago. 6. He is also chronic fentanyl for pain control. Given his constellation of symptoms, I would recommend treating his acute medical issues including the duodenitis as well the Clostridium difficile colitis and will monitor his gallbladder. Gallbladder distention would be almost expected with somebody with many GI issues ongoing. I do not see signs of liver function abnormality. He is not jaundiced. His abdominal exam is benign with only mild subjective tenderness and his ostomy is functioning. I do not see evidence of cholecystitis as well. We will follow him along. He would be very high risk given his prior surgical history for open cholecystectomy, and I worry about that in the setting of his other ongoing issues. We will follow him along. I also feel though that we are unlikely to make his symptoms better with cholecystectomy. cc: Josselin Newton MD [facility]
[2019-03-01] MEDS: MIRALAX PO SCH ×2 (16:45→20:42)
--- NOTE | 2019-03-01 19:33 | GASTROENTEROLOGY PROGRESS NOTE ---
DATE: 03/01/2019 SUBJECTIVE: Patient has been resting in bed. He is feeling better. He does complain of intermittent nausea and abdominal discomfort. He was able to eat 50% of his meal. He has had a bowel movement today. OBJECTIVE: vital signs: Temperature 98.5, pulse 102, respiratory rate 16, blood pressure 150/57, saturating 100% on room air. Body weight of 167 pounds. BMI 28.7 kg. General appearance: Patient lying in bed, in no acute distress. HEENT: Mild pallor. No icterus. Neck: Supple. Abdomen: Discomfort in the epigastrium. No rebound or guarding. He has a colostomy in the left lower quadrant. Extremities: No cyanosis, clubbing. Neurologic: Alert, awake, oriented x3. LABORATORY AND DIAGNOSTIC DATA: Blood glucose of 89. Triglycerides of 164 and cholesterol 133. Lipase yesterday was 133. HDL of 32. Stool studies negative for culture and no white cells in the stools. Clostridium difficile toxin is negative. Clostridium difficile antigen is positive. Blood cultures negative at 5 days from 02/17/2019. Abdominal x-ray done today showed there is gas and stool in the transverse colon. There is also some stool in the rectum. There is an apparent descending colostomy. Ultrasound revealed distention of the gallbladder. IMPRESSION AND PLAN: 1. Clostridium difficile colitis, positive Clostridium difficile antigen, but negative toxin. Colitis also secondary to chemotherapy. The last chemotherapy was given in January 2019, for history of colon cancer. 2. Known history of colon cancer, been on chemotherapy with Dr. Zhou. 3. Nausea and vomiting. 4. Duodenitis. 5. Gastritis. 6. 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 7. Mild pancreatitis, mildly elevated lipase. 8. Stool retained in the transverse colon and descending colon. 9. Status post LLQ colostomy. 10. Anemia. 11. Distended gallbladder on imaging, Surgery following. RECOMMENDATIONS: 1. We will continue the patient on PPIs b.i.d. Will continue on IV fluids for pancreatitis. We will check lipid panel and IgG4 levels. His gastritis, duodenitis, pancreatitis, and colitis could also be secondary to ?side effects from chemotherapy. We will await the input from Oncology. We will continue on Carafate 1 g q.6 hours for bile gastritis. We will start him on MiraLAX for constipation. He is anticoagulated by the primary care team. Continue to watch the blood count. We will start him on Iron-C once daily for anemia. 2. Because of constipation, we need to reduce the use of narcotics to as low as possible, which will also help with gastric motility and nausea. The patient will follow in the clinic in 3 months after discharge. The patient will need a repeat EGD in 3 months to evaluate duodenal stricture once the pancreatitis and duodenitis heal. 3. CT scan of the abdomen and pelvis done on 02/17/2019, shows distended gallbladder, inflammatory changes at the pancreatic head and also involving the adjacent duodenum. No pseudocyst identified. No pancreatic masses were seen. There is a left lower quadrant colostomy noted. There is evidence of broad-based, midline lower abdominal wall hernia, and there is a right inguinal hernia noted also. We will sign off at this time. The patient will follow up in the clinic in 3 months after discharge. At that time, we will plan to do EGD to evaluate for duodenitis, duodenal stricture. He may need repeat imaging at that time in the form of CT scan to evaluate the pancreas. The above plans were discussed with the patient and all questions answered. Please call us with any further questions. cc: MD Luis Castanon, DO MTDD
[2019-03-01] MEDS: NORCO-7.5 PO PRN (20:41)
[2019-03-02] MEDS: VANCOCIN PO SCH ×4 (04:56→22:26)
[2019-03-02] MEDS: NORCO-7.5 PO PRN ×3 (04:56→22:26)
[2019-03-02] MEDS: CARAFATE LIQUID PO SCH ×4 (04:56→21:43)
[2019-03-02] MEDS: PHENERGAN IV PRN ×2 (06:48→15:09)
[2019-03-02] MEDS: OFIRMEV 1000 MG/ISOTONIC SOLN 1,000 MG/100 ML BOTTLE IV PRN ×2 (06:48→17:06)
[2019-03-02 08:45] LABS: AGAP 12; ALBUMIN 2.6 g/dL (3.5-5.0); BUN 3 mg/dL (8-22); C REACTIVE PROT QUANT 108.92 mg/L (0.00-5.00); CALCIUM 8.9 mg/dL (8.8-10.2); CHLORIDE 98 mmol/L (98-107); COSMO 272; CREATININE 0.4 mg/dL (0.7-1.2); ESTIMATED GFR > 60; GLUCOSE 96 mg/dL (70-104); PHOSPHORUS 3.4 mg/dL (2.7-4.5); POTASSIUM 3.3 mmol/L (3.5-5.1); SODIUM 138 mmol/L (136-145); TCO2 28 mmol/L (25-35)
[2019-03-02] MEDS: MIRALAX PO SCH ×2 (10:23→21:45)
[2019-03-02] MEDS: CENTRUM SILVER PO SCH (10:24)
[2019-03-02] MEDS: PROTONIX IV SCH ×2 (10:24→21:44)
[2019-03-02] MEDS: XARELTO PO SCH (10:24)
[2019-03-02] MEDS: CULTURELLE PO SCH ×2 (10:24→21:43)
[2019-03-02] MEDS: CARDIZEM PO SCH ×2 (10:24→21:44)
[2019-03-02] MEDS: COZAAR PO SCH (10:24)
[2019-03-02] MEDS: ICAR-C PO SCH ×2 (10:24→21:44)
[2019-03-02] MEDS: LOPRESSOR PO SCH ×2 (10:24→21:43)
[2019-03-02] MEDS: SODIUM CHLORIDE 0.9% INJ SCH (10:25)
--- NOTE | 2019-03-02 14:46 | GENERAL SURGERY PROGRESS NOTE ---
DATE: 03/02/2019 SUBJECTIVE: He feels some better. Low-grade tachycardia. No fevers. Blood pressure 143/93. Most of his complaints are left lower quadrant and left flank and back pain. Denies any pain in the epigastrium or right upper quadrant. OBJECTIVE: On exam, he is alert. Cardiovascular: Sinus tachycardia. Abdomen: Is soft, nontender, nondistended. Ostomy is with stool in the bag but it is liquid. Creatinine 0.4. ASSESSMENT AND PLAN: This is a 63-year-old gentleman with recent history of colon cancer, chemotherapy. He has gastritis, duodenitis, pancreatitis and C. difficile colitis. His gallbladder is dilated, but no signs of biliary obstruction or cholecystitis. We will continue to observe him, but recommend medical management at this juncture. cc: Josselin Newton MD
--- NOTE | 2019-03-02 17:02 | PROGRESS NOTE ---
DATE: 03/02/2019 SUBJECTIVE: Today, Mr. Rodriguez refers to be doing fair. He still has a lot of abdominal discomfort and back pain. The patient was evaluated by both Surgery and GI. GI recommends that we should be extremely careful with use of narcotics since they think it is contributing to some of his GI related complaints. Morphine has been discontinued. The patient is on chronic fentanyl therapy. OBJECTIVE: Vital Signs: Blood pressure 142/93, pulse 111, respirations 16, and temperature 97.9 degrees. General: Mr. Rodriguez is a 63-year-old gentleman. He is in bed in no distress. Mucosa is pink and moist. Anicteric. Acyanotic. Neck: Supple. Chest: Good air entry bilaterally. There was no crepitations. No rhonchi. Cardiovascular: Regular rate and rhythm. No murmurs. No rubs. No gallops. GI: Abdomen is soft, It is distended, minimally tender, especially to the right lower abdomen. There is an old infraumbilical surgical scar. There is also an ostomy on the left side. The back has minimum fecal material. There was no rebound or guarding. SET UP / OPERATOR: Patient is awake, alert, and oriented. No focal deficit. LABORATORY DATA: Potassium 3.3. Rest of chemistry is unremarkable. The patient's C-reactive protein continues to go up. ASSESSMENT: 1. Abdominal pain with nausea and vomiting, secondary to duodenitis, gastritis, and colitis. We will continue to address. 2. C. Diff colitis on admission. Patient is on p.o. vancomycin for a total of 10 days. 3. Mild pancreatitis. C-reactive protein continues to be going up. We will continue symptomatic management. Both GI and surgery are on board. 4. Abnormally dilated gallbladder. The patient is not having any pain on the right upper quadrant. Surgery has evaluated him. They have recommended medical management at this point. 5. Mild hypokalemia. We will replace this. 6. History of invasive sigmoid adenocarcinoma. Patient is status post colon resection with end colostomy. He follows up with Dr. Zhou. Per documentation, he is on chemotherapy. Last treatment was 02/06/2019. 7. Chronic pain syndrome on chronic opioid therapy. The patient continues to be on fentanyl patch. I have discontinued his morphine because of all the GI related complications. The patient obviously was not very pleased, but he does understand. 8. Constipation most likely due to chronic opioid use. We will continue bowel regimen. cc: Joe Gonzalez MD MTDD
[2019-03-02] MEDS: LR 1,000 ML IV SCH ×2 (17:12)
[2019-03-02] MEDS: DURAGESIC 50 MICROGM/HR PATCH TD SCH (21:44)
[2019-03-03] MEDS: CARAFATE LIQUID PO SCH ×4 (04:40→21:05)
[2019-03-03] MEDS: VANCOCIN PO SCH ×4 (04:40→22:00)
[2019-03-03] MEDS: NORCO-7.5 PO PRN ×3 (04:41→18:17)
[2019-03-03] MEDS: LR 1,000 ML IV SCH ×3 (05:37→22:32)
[2019-03-03 08:12] LABS: HEMATOCRIT 31.1 % (42.0-52.0); HEMOGLOBIN 9.6 g/dL (14.0-18.0); MCH 28.2 PG (27-31); MCHC 30.9 g/dL (33-37); MCV 91.2 FL (81-99); RBC 3.41 XMIL (4.7-6.1); WBC 15.08 X1000 (4.8-10.8)
[2019-03-03 08:30] LABS: AGAP 13; ALB/GLOB RATIO 0.6; ALBUMIN 2.4 g/dL (3.5-5.0); ALKALINE PHOSPHATASE 827 U/L (32-122); BUN 5 mg/dL (8-22); CALCIUM 8.7 mg/dL (8.8-10.2); CHLORIDE 98 mmol/L (98-107); COSMO 270; CREATININE 0.4 mg/dL (0.7-1.2); ESTIMATED GFR > 60; GLUCOSE 73 mg/dL (70-104); GOT 119 U/L (10-34); GPT 62 U/L (10-44); MAGNESIUM 1.4 mg/dL (1.5-2.7); PHOSPHORUS 3.8 mg/dL (2.7-4.5); SODIUM 137 mmol/L (136-145); TCO2 26 mmol/L (25-35); TOTAL BILIRUBIN 3.47 mg/dL (0.20-1.00); TOTAL PROTEIN 6.3 g/dL (6.3-8.3)
[2019-03-03] MEDS: PHENERGAN IV PRN (09:10)
[2019-03-03] MEDS: MIRALAX PO SCH ×2 (11:15→21:02)
[2019-03-03] MEDS: ICAR-C PO SCH ×2 (11:16→21:06)
[2019-03-03] MEDS: XARELTO PO SCH (11:16)
[2019-03-03] MEDS: LOPRESSOR PO SCH ×2 (11:16→21:05)
[2019-03-03] MEDS: CARDIZEM PO SCH ×2 (11:16→21:06)
[2019-03-03] MEDS: COZAAR PO SCH (11:16)
[2019-03-03] MEDS: CENTRUM SILVER PO SCH (11:16)
[2019-03-03] MEDS: CULTURELLE PO SCH ×2 (11:17→21:06)
[2019-03-03] MEDS: SODIUM CHLORIDE 0.9% INJ SCH ×2 (11:18→21:06)
[2019-03-03] MEDS: PROTONIX IV SCH ×2 (11:18→21:05)
[2019-03-03] MEDS ORDERED: POTASSIUM CHLORIDE 40 MEQ/SWI 40 MEQ/100 ML IVPB IV ONE (13:00)
[2019-03-03] MEDS ORDERED: MAGNESIUM SULFATE 2 GM/S.W.I. 2 GM/50 ML IVPB IV ONE (13:00)
--- NOTE | 2019-03-03 16:49 | PROGRESS NOTE ---
DATE: 03/03/2019 SUBJECTIVE: This patient is resting in bed. He is still complaining of abdominal discomfort. His LFTs are elevated compared with before, actually AST ALT were completely normal a few days ago and now they are high as well as the bilirubin. Alkaline phosphatase increased from 141 on the 16th to 827. The CRP also is elevated today. Case has been discussed with Gastroenterology Department as well as Surgery Department. OBJECTIVE: Vital Signs: Temperature 98.5 degrees, pulse 114, respiratory rate 20, blood pressure 152/86, oxygen saturation 100% on room air. HEENT: Head normocephalic, no trauma. PERRLA. Neck: Supple. No JVD. No masses. Central trachea. Chest: Clear to auscultation. Some crepitus at the bases. Cardiovascular: Regular rate and rhythm. Tachycardic. Abdomen: Soft, is slightly distended and is a bit tender mostly at the level of the periumbilical area. He has a midline surgical scar and there is an ostomy on the left side. His bag has minimal fecal material, no rebound. Neurological: The patient is awake, alert. He is oriented. No focal deficits. LABORATORY: WBC 15, hemoglobin 9.6, hematocrit 31.1, platelet 232,000. Sodium 137, potassium 3, chloride 98, bicarbonate 28, BUN 5, creatinine 0.4, glucose 68, calcium 8.7, magnesium 1.4. AST 119, ALT 62, alkaline phosphatase 827. CRP 196, lipase level 346. ASSESSMENT AND PLAN: 1. Abdominal pain with nausea, vomiting secondary to duodenitis, gastritis and colitis, I will continue with same management for now. This patient has been scoped already by Gastroenterology Department, and they found reflux esophagitis in the distal esophagus, acute gastritis was found in the gastric antrum and on the greater curvature of the gastric body. Duodenal inflammation was found in the duodenal bulb, 1st part of the duodenum and 2nd part of the duodenum. He also has an acquired stenosis was found in the second part of the duodenum and 1st part of the duodenum. 2. Pancreatitis, lipase level is increasing a couple days ago was 501 153, now 346, the gallbladder. The ultrasound of the abdomen showed an abnormally distended gallbladder but no stones. As per Gastroenterology Department probably this patient has some sludge that can be causing this. Surgery Department has been also following this patient. Probably this gallbladder has to be removed in the near future, but for now we will treat the pancreatitis. 3. Clostridium difficile colitis on admission. This patient is on p.o. vancomycin for a total 10 days and he also was placed on Flagyl some days ago but this has been already stopped. 4. Abnormally dilated gallbladder. There is a possibility of the gallbladder is causing this pancreatitis, so the case has been discussed with Surgery Department. We will try to continue with same management for now but probably this gallbladder has to be removed. 5. Electrolyte imbalance including hypokalemia, hypomagnesemia. I will replace both. 6. History of invasive sigmoid adenocarcinoma, status post colon resection and end colostomy, followed by Dr. Zhou. 7. Chronic pain syndrome on chronic opioid therapy. Continue with fentanyl patch. 8. Constipation, likely due to chronic opioid use. Initially he was having large amount of diarrhea that apparently got better. We will continue with same management for now. 9. Elevated liver function tests, probably due to gallbladder issues. The lipase level is also abnormal. Surgery Department and Gastroenterology Department on board. I will wait for recommendations. In the meantime, I will put this patient NPO, I will increase the rate of the fluids. cc: Josh Mascorro MD
--- NOTE | 2019-03-03 17:01 | Diag Imaging Result Doc PS360 ---
EXAM: MRI MRCP (ABD W/O CONTRAST) INDICATION: evaluate for biliary obstruction TECHNIQUE: COMPARISON: CT abdomen and pelvis dated 02/17/2019. No prior MRI abdomen is available for comparison. FINDINGS: There is excessive motion artifact, which limits sensitivity and specificity. There is a small simple hepatic cysts at the periphery of the right hepatic lobe. The gallbladder is distended and there is a small amount of pericholecystic fluid. There is still fluid around the head of the pancreas, which was also seen on the previous CT suggesting pancreatitis. The common bile duct tapers as it approaches the head of the pancreas. The common bile duct is dilated measuring up to 1.5 cm in diameter. No definite filling defect is identified involving the common bile duct. There is no evidence of significant intrahepatic biliary dilatation. The spleen, adrenal glands, kidneys, and the visualized abdominal segments of the GI tract are grossly unremarkable as imaged. IMPRESSION: 1.Limited study due to excessive motion artifact. 2.Small amount of pericholecystic fluid. 3.Fluid around the head of the pancreas similar to the previous CT suggesting pancreatitis. 4.Dilated common bile duct but no definite intraductal filling defect is identified. Electronically signed by Gadiel Sagastume 03/03/2019 4:59 PM
--- NOTE | 2019-03-03 20:43 | GENERAL SURGERY PROGRESS NOTE ---
DATE: 03/03/2019 SUBJECTIVE: He continues to have left lower quadrant left flank pain. His ostomy output is improving. OBJECTIVE: He is afebrile. low-grade tachycardia. Blood pressure 140s- 150s.General: He is alert, there is no obvious jaundice. Abdomen: Soft. There is no tenderness right upper quadrant. His ostomy has stool in bag. His white count up to 15, hematocrit 31, creatinine 0.4, his bilirubin is up to 3.47 with an elevation AST, ALT and alkaline phosphatase. Lipase again is up to 346. ASSESSMENT/PLAN: This is a 63-year-old gentleman with multiple issues, pancreatitis, colitis, duodenitis, gastritis. Liver function tests have been relatively normal but they are worsening now. I have ordered an MRCP this afternoon to better define and it shows a prominent bile duct but it does not show any filling defects. There is fluid around the head of the pancreas and that tracked up along the gallbladder but this is somewhat of a limited study. ASSESSMENT/PLAN: This remains a unusual picture. It is unclear the exact etiology. His gallbladder is dilated. There is no obvious stone and there is no obvious inflammatory changes. He does have pancreatitis which could be gallstone mediated, but I do not see a filling defect on his MRCP. Nevertheless, I would allow pancreatitis to resolve prior to cholecystectomy. This is reasonable, although he would be high risk for an open cholecystectomy given his previous surgery. I discussed with the patient. His abdominal exam remains benign and hemodynamically he is about the same. I would recommend more aggressive IV hydration, strict bowel rest. He may even require peripheral nutrition but hopefully this will allow his pancreatitis to resolve in timely fashion. cc: Josselin Newton MD [facility]
[2019-03-04] MEDS: NORCO-7.5 PO PRN ×4 (00:13→21:16)
[2019-03-04] MEDS ORDERED: D50W SYRINGE IV ONE (04:25)
[2019-03-04] MEDS: CARAFATE LIQUID PO SCH ×4 (04:31→21:17)
[2019-03-04] MEDS: PHENERGAN IV PRN ×3 (04:57→21:10)
[2019-03-04] MEDS: LR 1,000 ML IV SCH ×3 (05:04→23:57)
[2019-03-04] MEDS: VANCOCIN PO SCH ×2 (05:04→10:26)
[2019-03-04 07:27] LABS: BASO# 0.09 X1000 (0.0-0.2); BASO% 0.4 % (0.0-0.8); EOS# 0.06 X1000 (0.0-0.7); EOS% 0.2 % (0.0-10.0); HEMATOCRIT 32.9 % (42.0-52.0); IMM GRAN# 0.15 X1000 (0.0-0.04); IMM GRAN% 0.6 % (0.0-0.5); LYMPH# 2.16 X1000 (1.2-3.4); LYMPH% 8.9 % (20.5-51.1); MCH 27.5 PG (27-31); MCHC 30.4 g/dL (33-37); MCV 90.6 FL (81-99); MONO# 2.03 X1000 (0.11-0.59); MONO% 8.4 % (1.7-9.3); MPV 10.6 FL (7.4-10.4); NEUT# 19.73 X1000 (1.4-6.5); NEUT% 81.5 % (42.2-75.2); PLT 302 X1000 (130-400); RBC 3.63 XMIL (4.7-6.1); WBC 24.22 X1000 (4.8-10.8)
[2019-03-04 07:56] LABS: AGAP 12; ALB/GLOB RATIO 0.6; ALBUMIN 2.6 g/dL (3.5-5.0); ALKALINE PHOSPHATASE 1094 U/L (32-122); AMYLASE 111 U/L (20-200); BUN 5 mg/dL (8-22); CALCIUM 8.8 mg/dL (8.8-10.2); CHLORIDE 97 mmol/L (98-107); COSMO 271; CREATININE 0.5 mg/dL (0.7-1.2); ESTIMATED GFR > 60; GLUCOSE 91 mg/dL (70-104); GOT 142 U/L (10-34); GPT 77 U/L (10-44); LIPASE 184 U/L (13-60); MAGNESIUM 1.8 mg/dL (1.5-2.7); PHOSPHORUS 2.9 mg/dL (2.7-4.5); POTASSIUM 3.6 mmol/L (3.5-5.1); SODIUM 137 mmol/L (136-145); TCO2 28 mmol/L (25-35); TOTAL BILIRUBIN 4.66 mg/dL (0.20-1.00); TOTAL PROTEIN 6.7 g/dL (6.3-8.3)
[2019-03-04 08:14] LABS: BANDS 2 % (0-1); LYMPHS 4 % (21-51); MONO 4 % (1-9); SEGS 90 % (42-75)
[2019-03-04 08:15] LABS: HYPOCHROM 1+
[2019-03-04] MEDS ORDERED: LR 1,000 ML IV SCH ×2 (08:43→08:46)
[2019-03-04] MEDS: ZOSYN 3.375 GM in NS 50 ML IV SCH ×3 (09:45→21:07)
[2019-03-04] MEDS: COZAAR PO SCH (09:46)
[2019-03-04] MEDS: CARDIZEM PO SCH ×2 (09:46→21:16)
[2019-03-04] MEDS: XARELTO PO SCH (09:46)
[2019-03-04] MEDS: LOPRESSOR PO SCH ×2 (09:46→21:16)
[2019-03-04] MEDS: CENTRUM SILVER PO SCH (09:46)
[2019-03-04] MEDS: CULTURELLE PO SCH ×2 (09:46→21:16)
[2019-03-04] MEDS: MIRALAX PO SCH ×2 (09:47→21:17)
[2019-03-04] MEDS: PROTONIX IV SCH ×2 (09:47→21:17)
[2019-03-04] MEDS: SODIUM CHLORIDE 0.9% INJ SCH (09:47)
[2019-03-04] MEDS: ICAR-C PO SCH ×2 (09:47→21:16)
--- NOTE | 2019-03-04 12:23 | PROGRESS NOTE ---
DATE: 03/04/2019 SUBJECTIVE: The patient is resting in bed. He is not complaining of nausea or vomiting today. He is on bowel rest. I will increase the rate of the IV fluids. He has been getting lactated Ringer's. LFTs are going up. Potassium and magnesium are within normal limits, and lipase level is decreasing from 346 to 184. I will continue with the same management. Probably this patient will need to have a cholecystectomy done. OBJECTIVE: Vital Signs: Temperature 98.2 degrees, pulse 110, respiratory rate 16, blood pressure 124/81, oxygen saturation 99 on room air. HEENT: Head normocephalic. No trauma. PERRLA. Neck: Supple. No JVD. No masses. Central trachea. Chest: Clear to auscultation. Some crepitus at the bases. Cardiovascular: RRR. Slightly tachycardic. Abdomen: Soft, slightly distended. Some tenderness to palpation around the periumbilical area. He has a midline surgical scar with no signs of problems. There is an ostomy on the left side. His bag has minimal fecal material. No rebound. Neurological: The patient is awake, alert. He is oriented x3. No focal deficits. LABORATORY DATA: WBC 24.2, hemoglobin 10, hematocrit 32.9, platelets 302,000. Sodium 137, potassium 3.6, chloride 97, bicarbonate 28, BUN 5, creatinine 0.5, glucose 91, calcium 8.8. Magnesium 1.8. AST 142, ALT 77, alkaline phosphatase 1094, lipase is 184. ASSESSMENT AND PLAN: 1. Abdominal pain with nausea and vomiting secondary to duodenitis, gastritis, and colitis. Continue with the same management for now. This patient already had an endoscopy that showed reflux esophagitis in the distal esophagus. Acute gastritis was found in the gastric antrum and on the greater curvature of the gastric body. Duodenal inflammation was found in the duodenal bulb, first part of the duodenum and second part of the duodenum as well. He also has an acquired stenosis in the second part of the duodenum and first part. 2. Pancreatitis. Lipase level increased to 346 yesterday, but now it is back down to 184. I will be more aggressive with the intravenous fluids. Probably this patient needs to have a cholecystectomy done. For now, I will continue with the same management, and I will add Zosyn to his medications because his white blood cell count is trending up. 3. Clostridium difficile colitis on admission. He started treatment with vancomycin on 02/20/2019, and it has been already 10 days, so I will stop it. 4. Abnormally dilated gallbladder. There is a possibility that the gallbladder is causing this pancreatitis. Case has been discussed yesterday with Surgery Department and Gastroenterology Department. Likely, this patient will have a cholecystectomy done once the pancreatitis is better. 5. Electrolyte imbalance, including hypokalemia, hypomagnesemia. Normal today. 6. History of invasive sigmoid adenocarcinoma, status post colon resection and end colostomy, followed by Dr. Zhou. 7. Chronic pain syndrome, on chronic opioid therapy. Continue with fentanyl patch. 8. Patient admitted due to diarrhea, but he has been having chronic constipation due to chronic opioid use. 9. Elevated liver function tests, probably related to gallbladder issues. Lipase also is elevated, but better compared with yesterday. I will keep this patient nothing by mouth. I will increase the rate of the intravenous fluids. cc: Josh Mascorro MD
[2019-03-04] MEDS: SODIUM CHLORIDE 0.9% INJ PRN (15:41)
[2019-03-04] MEDS ORDERED: D50W SYRINGE IV PRN (15:59)
[2019-03-04] MEDS: D5 NS 1,000 ML IV SCH (16:34)
--- NOTE | 2019-03-04 20:43 | GENERAL SURGERY PROGRESS NOTE ---
DATE: 03/04/2019 SUBJECTIVE: He seems to be feeling better. He is moving about. Says he is still having some lower back pain, but denies any real abdominal pain. No fevers. Pulse in the low 100s, stable. Blood pressure 113/80.General: He is alert. HEENT is noted obvious scleral icterus. Cardiovascular low-grade sinus tachycardia. Abdomen is soft, nontender. Liquid stool in the ostomy bag. Reviewed his labs. LABS: White count of 24, hematocrit 32, creatinine 0.5, bilirubin is 4.66. AST, ALT, and alkaline phosphatase remain elevated. Alkaline phosphatase is up to 1094. His lipase down to 184. His MRCP from yesterday shows dilated common bile duct and fluid around the head of the pancreas, but there is no filling defect of the common bile duct. ASSESSMENT AND PLAN: This is a 63-year-old gentleman with multiple ongoing issues. My concern is for biliary obstruction related to a process in the head of the pancreas. I talked to the manager enterprise content management about this and they plan for ERCP. We will follow along. I agree with bowel rest and IV fluids. He may need peripheral nutrition. cc: Josselin Newton MD
[2019-03-05] MEDS: ZOSYN 3.375 GM in NS 50 ML IV SCH ×4 (01:55→21:17)
[2019-03-05] MEDS: NORCO-7.5 PO PRN ×3 (04:01→23:47)
[2019-03-05] MEDS: PHENERGAN IV PRN ×2 (04:02→09:36)
[2019-03-05] MEDS: CARAFATE LIQUID PO SCH ×4 (04:43→21:17)
[2019-03-05 07:40] LABS: BASO# 0.05 X1000 (0.0-0.2); BASO% 0.3 % (0.0-0.8); EOS# 0.05 X1000 (0.0-0.7); EOS% 0.3 % (0.0-10.0); HEMATOCRIT 29.6 % (42.0-52.0); HEMOGLOBIN 8.9 g/dL (14.0-18.0); IMM GRAN% 0.5 % (0.0-0.5); LYMPH# 1.28 X1000 (1.2-3.4); MCH 27.1 PG (27-31); MCHC 30.1 g/dL (33-37); MCV 90.2 FL (81-99); MONO# 1.49 X1000 (0.11-0.59); MONO% 8.2 % (1.7-9.3); MPV 10.6 FL (7.4-10.4); NEUT# 15.23 X1000 (1.4-6.5); NEUT% 83.7 % (42.2-75.2); PLT 240 X1000 (130-400); RBC 3.28 XMIL (4.7-6.1); RDW 18.3 % (11.5-14.5)
[2019-03-05 08:38] LABS: ESTIMATED GFR > 60
[2019-03-05 08:40] LABS: AGAP 13; ALB/GLOB RATIO 0.5; ALKALINE PHOSPHATASE 1068 U/L (32-122); AMYLASE 66 U/L (20-200); BUN 5 mg/dL (8-22); C REACTIVE PROT QUANT 278.44 mg/L (0.00-5.00); CALCIUM 8.6 mg/dL (8.8-10.2); CHLORIDE 101 mmol/L (98-107); COSMO 271; CREATININE 0.5 mg/dL (0.7-1.2); GLUCOSE 93 mg/dL (70-104); GOT 124 U/L (10-34); GPT 73 U/L (10-44); LIPASE 99 U/L (13-60); POTASSIUM 3.3 mmol/L (3.5-5.1); SODIUM 137 mmol/L (136-145); TCO2 23 mmol/L (25-35); TOTAL BILIRUBIN 5.17 mg/dL (0.20-1.00)
[2019-03-05 08:47] LABS: MAGNESIUM 1.5 mg/dL (1.5-2.7); PHOSPHORUS 2.7 mg/dL (2.7-4.5)
[2019-03-05] MEDS: LR 1,000 ML IV SCH ×3 (09:22→23:00)
[2019-03-05] MEDS: MIRALAX PO SCH ×2 (09:25→21:17)
[2019-03-05] MEDS: PROTONIX IV SCH ×2 (09:26→21:18)
[2019-03-05] MEDS: SODIUM CHLORIDE 0.9% INJ SCH (09:26)
[2019-03-05] MEDS: CENTRUM SILVER PO SCH (09:28)
[2019-03-05] MEDS: CULTURELLE PO SCH ×2 (09:28→21:17)
[2019-03-05] MEDS: COZAAR PO SCH (09:28)
[2019-03-05] MEDS: CARDIZEM PO SCH ×2 (09:28→21:18)
[2019-03-05] MEDS: ICAR-C PO SCH ×2 (09:28→21:17)
[2019-03-05] MEDS: LOPRESSOR PO SCH ×2 (09:28→21:17)
[2019-03-05] MEDS: SODIUM CHLORIDE 0.9% INJ PRN (09:36)
[2019-03-05] MEDS: D5 NS 1,000 ML IV SCH (12:23)
--- NOTE | 2019-03-05 14:39 | PROGRESS NOTE ---
DATE: 03/05/2019 SUBJECTIVE: The patient is resting comfortably in bed. Hopefully he will have today an ERCP done. Also I have requested PT/OT to evaluate this patient and I already talked to the dietitian about TPN just in case we need that after the procedure. I will wait for the results. I will monitor this closely. Continue with IV fluids. PHYSICAL EXAMINATION: Vital signs: Temperature 97.8 degrees, pulse 118, respiratory rate 16, blood pressure 159/89, oxygen saturation 97% on room air. HEENT: Head normocephalic. No trauma. PERRLA. Neck: Supple. No JVD. No masses. Central trachea. Chest: Clear to auscultation. Some crepitus at the bases. Cardiovascular: RRR. Slightly tachycardic. Abdomen: Soft. Slightly distended. Some tenderness to palpation around the periumbilical area. He has a midline surgical scar with no signs of problem. There is an ostomy on the left side. His bag is having some minimal fecal material. No rebound. Neurological: Patient is awake and alert. He is oriented x3. No focal deficits. LABORATORY: WBC 18.2, hemoglobin 8.9, hematocrit 29.6, platelets 240,000. Sodium 137, potassium 3.3, chloride 101, bicarbonate 23, BUN 5, creatinine 0.5, glucose 93, calcium 8.6, magnesium 1.5, albumin 2. ASSESSMENT AND PLAN: 1. Abdominal pain with nausea and vomiting secondary to duodenitis, gastritis, and colitis. Continue with same management for now. 2. Pancreatitis. Today this patient will have an ERCP done. We will monitor this patient closely. The lipase level is getting better. 3. Clostridium difficile colitis on admission. Already treated with vancomycin for 10 days. 4. Abnormally dilated gallbladder. Again, he will go for an ERCP today. 5. Electrolyte imbalance including hypokalemia, hypomagnesemia. Potassium is a bit low today. He is going for a procedure. I will replace it later. 6. History of invasive sigmoid adenocarcinoma, status post colon resection and end colostomy. Followed by Dr. Zhou. 7. Chronic pain syndrome. On chronic opioid therapy. Continue fentanyl patch. 8. The patient admitted initially due to severe diarrhea which is getting better. 9. Elevated liver function tests, probably due to obstruction in the biliary tree. He is going for endoscopic exam today/ERCP. The patient is going for an ERCP today. Hopefully, this will resolve part of his problems. I already talked to the dietitian about TPN in case it is needed and also I want to start this patient on PT/OT. cc: Josh Mascorro MD
[2019-03-05] MEDS ORDERED: DIPRIVAN 1% ONE ×2 (15:45→16:22)
[2019-03-05] MEDS ORDERED: XYLOCAINE-MPF 2% ONE (15:50)
--- NOTE | 2019-03-05 15:57 | GASTROENTEROLOGY PROGRESS NOTE ---
DATE: 03/05/2019 SUBJECTIVE: Mr. Rodriguez is a 63-year-old male resting in bed. The patient has been complaining of nausea, vomiting, and abdominal tenderness all over. The patient is currently n.p.o. except medications. He has a colostomy bag and he mentioned that it was changed yesterday morning. OBJECTIVE: Vitals: Temperature 98 degrees, pulse 110, respirations 14, blood pressure 144/82, the patient is on 2 L nasal cannula. The patient's weight is 167 pounds. BMI is 28.7 kg/m2. General: He is alert, oriented x3, and in no acute distress. HEENT: Pale conjunctivae. No icterus. PERRL. Neck: Supple. Lungs: Clear to auscultation. Abdomen: Distended, firm, tender all over. Colostomy on the left quadrant. Hypoactive bowel sounds heard in all 4 quadrants. Extremities: No clubbing, no cyanosis. Generalized edema in the lower extremities. Pedal pulses 1+ present bilaterally. Neurologic: Alert and orient x 3. LABS: WBC 18.20, RBC 3.28, hemoglobin is 8.29, hematocrit 29.2. Platelet is 240,000. Sodium 137, potassium 3.3. Chloride 101, carbon dioxide 23, anion gap 13, BUN 5, creatinine 0.5, glucose 93, calcium 8.6, phosphorus 2.7, magnesium 1.5, total bilirubin 5.17, AST 124, ALT 73, alkaline phosphatase 1068. IMAGING: An MRCP was done yesterday and it showed that the study was limited due to excessive motion. A small amount of pericholecystic fluid around the head of the pancreas, similar to the previous CT suggesting pancreatitis. Dilated common bile duct, but no definite intraductal filling defect is identified. An ERCP was attempted today but sideviewing scope was not able to pass into the duodenum. The duodenum was strictured down because of the mass on the medial wall of the duodenum and edema. EGD showed mucosa of the esophagus and the stomach was normal. There was along stricture with an inner diameter of 10 mm in the 2nd part of the duodenum and periampullary area, biopsies were performed. IMPRESSION AND PLAN: Ampullary mass Duodenal stricture Pancreatitis N/V Biliary obstruction H/o colon cancer Recent Cdiff PLAN: Mr. Rodriguez is a 63-year-old male with a history of colon cancer status post colon resection with colostomy. The patient is still complaining of abdominal pain with nausea and vomiting. Based on the MRCP findings, and ERCP was done today and patient has a mass on the medial wall of the duodenum. Dr. Hall will get the IR to stent the ampulla. He is currently on full liquid diet. Awaiting the results of the biopsies. Patient is on PPI twice a day. On antiemetic Phenergan for his nausea and vomiting. We will continue to monitor the patient and follow the plan of care. This plan was discussed with Dr. Garcia. Please call us for any further questions or concerns. Dictated by ZEN Phillips for Maury Garcia MD Physician Attestation I have seen and examined the patient. I have discussed and reviewed the note by Bernie ZALDIVAR and agree with findings and plan as documented. In brief, Mr. 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 ERCP could not be done as side- viewing scope could not be traversed past the stricture. Biopsies were obtained from stricture. Recommend transfer to [facility] where he will need percutaneous trans-hepatic biliary decompression, biopsy and stent placement. Surgical evaluation is also needed. Findings are concerning for malignancy. Will follow with you. Appreciate Dr. Nieto's assistance. [facility]AST HEALTH SYSTEMMarilyn
[2019-03-05] MEDS ORDERED: ZOFRAN ONE (16:01)
--- NOTE | 2019-03-05 16:55 | ENDOSCOPY OPERATIVE NOTE ---
[facility] ENDOSCOPY OPERATIVE NOTE , EGD PROCEDURE REPORT PATIENT: Irwin Rodriguez Sr ADMISSION DATE: 03/05/2019 MR#: [id number] : 1955 PROCEDURE DATE: 03/05/2019 SURGEON: Boris Hall MD STATUS: inpatient INTERNAL AUDIT MANAGER: Jennifer Manzano and Lobito Vegas PREOPERATIVE DIAGNOSIS: The patient is a 63 yr old male here for an EGD due to nausea, vomiting, and Abnormal MRCP, dilated CBD and abnormal LFT.. PROCEDURE PERFORMED: EGD w/ biopsy MEDICATIONS: Per Anesthesia TOPICAL ANESTHETIC: none CONSENT: The patient understands the risks and benefits of the procedure and understands that these r isks include, but are not limited to: sedation, allergic reaction, infection, perforation and/or bleeding. Alternative means of evaluation and treatment include, among others: physical exam, x-rays, and/or surgical intervention. The patient elects to proceed with this endoscopic procedure. HISORY AND PHYSICAL: 03/05/2019 DESCRIPTION OF PROCEDURE: During intra-op preparation period all mechanical and medical equipment was checked for proper function. Hand hygiene and appropriate measures for infection prevention was taken. After the risks, benefits and alternatives of the procedure were thoroughly explained, Informed consent was verified, confirmed and timeout was successfully executed by the treatment team. The patient was anesthetized with topical anesthesia and the [id number] ([id number]) and [id number] ([id number]) endoscope was introduced through the mouth and advanced to the secon d portion of the duodenum. Retroflexion was performed in the stomach and revealed no abnormalities. The gastroscope was then slowly withdrawn and removed. ESOPHAGUS: ERCP was attempted but sideviewing scope could not be passed into the duodenum. Duodenum was strictured down because of mass effect on the medial wall of the duodenum and severe edema. scope was switched. EGD was then done. The mucosa of the esophagus appeared normal. STOMACH: The mucosa of the stomach appeared normal. DUODENUM: There was a long 10mm inner diameter Mass like effect around the ampulla. Severe edema and swelling noted. stricture in the 2nd part of the duodenum and niki-ampullary area. The stricture was traversable. M ultiple biopsies were performed using cold forceps. Sample sent for histology. SPECIMENS REMOVED: No ADVERSE EVENTS: There were no complications. POSTOPERATIVE DIAGNOSIS: 1. ERCP was attempted but sideviewing scope could not be passed into th e duodenum. Duodenum was strictured down because of mass effect on the medial wall of the duodenum and severe magy ma. scope was switched. EGD was then done 2. The mucosa of the esophagus appeared normal 3. The mucosa of the stomach appeared normal 4. There was a long stricture, with an inner diameter of 10mm, in the 2nd part of the duodenum and p елена-ampullary area; multiple biopsies were performed RECOMMENDATIONS: 1. Follow-up biopsy results in 2 weeks 2. Start Full liquid diet for 1 Day(s) 3. Transfer to floor 4. Will get IR to stent the ampulla. 5. Resume current medications REPEAT EXAM: Boris Hall MD eSigned: Boris Hall MD 03/05/2019 4:54 PM cc: MD Maury Frazier MD PATIENT NAME: Irwin Rodriguez Sr MR#: [id number]
--- NOTE | 2019-03-05 19:52 | GENERAL SURGERY PROGRESS NOTE ---
DATE: 03/05/2019 SUBJECTIVE: He continues to have some nausea and intolerance to p.o. OBJECTIVE: On exam, he is afebrile. There is no obvious jaundice. Heart rate remains in the low 100s. Abdomen is soft, nontender, nondistended. LABS: I reviewed his labs. White count down 18. His bilirubin is up to 5.17 with a persistent transaminitis and his alkaline phosphatase is 1068. Lipase down to 99. ASSESSMENT AND PLAN: This is a gentleman with biliary dilation with concern for obstruction. He has had no gallstones. No filling defects other than some inflammatory changes at the head of the pancreas. I have talked with our gastroenterology colleagues about this. I recommended endoscopic retrograde cholangiopancreatography to further evaluate this. Hopefully, they will be able to do this soon. He has got multiple issues pancreatitis, duodenitis with duodenal stricture, as well as Clostridium difficile colitis. Endoscopic retrograde cholangiopancreatography to further delineate the source of his jaundice and hopefully treat this. Very high risk for open cholecystectomy. No obvious changes consistent with cholecystitis. I worry about more of the pancreatic head process causing his biliary obstruction than gallbladder mediated. cc: Josselin Newton MD
[2019-03-05] MEDS: DURAGESIC 50 MICROGM/HR PATCH TD SCH (21:17)
[2019-03-06] MEDS: CARAFATE LIQUID PO SCH ×4 (03:30→21:07)
[2019-03-06] MEDS: ZOSYN 3.375 GM in NS 50 ML IV SCH ×4 (03:30→21:01)
[2019-03-06] MEDS: LR 1,000 ML IV SCH ×2 (06:28→15:59)
[2019-03-06] MEDS: PHENERGAN IV PRN ×2 (06:28→16:00)
[2019-03-06] MEDS: NORCO-7.5 PO PRN ×3 (06:28→21:55)
--- NOTE | 2019-03-06 07:20 | Diag Imaging Result Doc PS360 ---
EXAM: ABDOMEN FLAT/UPRIGHT 03/06/2019 HISTORY: Abdominal pain TECHNIQUE: Flat and upright abdomen portable COMMENT: There is gas in the stomach and transverse colon. There is no evidence of small bowel obstruction organomegaly or mass. Compared to 03/01/2019 the appearance of the abdomen has not changed appreciably. IMPRESSION: Nonspecific abdomen. Electronically signed by Jaziel Calhoun 03/06/2019 7:18 AM
[2019-03-06 08:07] LABS: BASO# 0.04 X1000 (0.0-0.2); BASO% 0.2 % (0.0-0.8); EOS# 0.02 X1000 (0.0-0.7); EOS% 0.1 % (0.0-10.0); HEMATOCRIT 28.6 % (42.0-52.0); HEMOGLOBIN 8.7 g/dL (14.0-18.0); IMM GRAN# 0.08 X1000 (0.0-0.04); IMM GRAN% 0.4 % (0.0-0.5); LYMPH# 1.07 X1000 (1.2-3.4); LYMPH% 4.9 % (20.5-51.1); MCH 27.4 PG (27-31); MCHC 30.4 g/dL (33-37); MCV 90.2 FL (81-99); MONO# 1.55 X1000 (0.11-0.59); MONO% 7.2 % (1.7-9.3); MPV 10.3 FL (7.4-10.4); NEUT% 87.2 % (42.2-75.2); PLT 257 X1000 (130-400); RBC 3.17 XMIL (4.7-6.1); RDW 18.4 % (11.5-14.5); WBC 21.66 X1000 (4.8-10.8)
[2019-03-06 08:31] LABS: AGAP 7; ALB/GLOB RATIO 0.5; ALKALINE PHOSPHATASE 1103 U/L (32-122); AMYLASE 57 U/L (20-200); BUN 4 mg/dL (8-22); CALCIUM 8.2 mg/dL (8.8-10.2); CHLORIDE 99 mmol/L (98-107); COSMO 270; CREATININE 0.5 mg/dL (0.7-1.2); ESTIMATED GFR > 60; GLUCOSE 91 mg/dL (70-104); GOT 129 U/L (10-34); GPT 76 U/L (10-44); LIPASE 96 U/L (13-60); MAGNESIUM 1.4 mg/dL (1.5-2.7); PHOSPHORUS 3.2 mg/dL (2.7-4.5); POTASSIUM 2.9 mmol/L (3.5-5.1); SODIUM 137 mmol/L (136-145); TCO2 31 mmol/L (25-35); TOTAL PROTEIN 5.8 g/dL (6.3-8.3)
[2019-03-06] MEDS ORDERED: MAGNESIUM SULFATE 2 GM/S.W.I. 2 GM/50 ML IVPB IV ONE (09:49)
[2019-03-06] MEDS ORDERED: POTASSIUM CHLORIDE 40 MEQ/SWI 40 MEQ/100 ML IVPB IV ONE (09:50)
[2019-03-06] MEDS: D5 NS 1,000 ML IV SCH (09:56)
[2019-03-06] MEDS: LOPRESSOR PO SCH ×2 (09:59→21:08)
[2019-03-06] MEDS: COZAAR PO SCH (10:00)
[2019-03-06] MEDS: CARDIZEM PO SCH ×2 (10:00→21:08)
[2019-03-06] MEDS: ICAR-C PO SCH ×2 (10:00→21:08)
[2019-03-06] MEDS: CENTRUM SILVER PO SCH (10:00)
[2019-03-06] MEDS: MIRALAX PO SCH ×2 (10:00→21:00)
[2019-03-06] MEDS: PROTONIX IV SCH ×2 (10:00→21:04)
[2019-03-06] MEDS: SODIUM CHLORIDE 0.9% INJ SCH (10:00)
[2019-03-06] MEDS: CULTURELLE PO SCH ×2 (10:01→21:08)
[2019-03-06] MEDS ORDERED: PHENERGAN IV ONE (10:50)
[2019-03-06] MEDS ORDERED: SODIUM CHLORIDE 0.9% INJ ONE (10:50)
--- NOTE | 2019-03-06 12:04 | PROGRESS NOTE ---
DATE: 03/06/2019 SUBJECTIVE: Patient is resting comfortably in bed. He is still complaining of nausea and vomiting, ERCP was done yesterday but unfortunately, it was not done completely, because the side - viewing scope could not be traversed past the stricture. Biopsies were obtained for the stricture. They have recommended to transfer this patient to [facility]. I did call them to see if Interventional Radiology can do a percutaneous transhepatic biliary decompression, biopsy and stent placement, but unfortunately they are not accepting new patients because they do not have a bed available right now. I went ahead and called [facility] and also [place] but they are in the same situation. I will try later today with [place] again. I already talked to the patient and his brother at the bedside. Also, I discussed the case with Dr. Gusman. OBJECTIVE: Vital Signs: Temperature 97.9 degrees, pulse 74, respiratory rate 18, blood pressure 135/82, oxygen saturation 96 on room air. HEENT: Head normocephalic. No trauma. PERRLA. Neck: Supple. No JVD. No masses. Central trachea. Chest: Clear to auscultation. Some crepitus at the bases. Cardiovascular: Regular rate and rhythm. Abdomen: Soft, slightly to moderately distended. Some tenderness to palpation around the periumbilical area. He has a midline surgical scar with no signs of problems. There is an ostomy on the left side. His bag is having some minimal fecal material, no rebound. Neurological: Awake, alert. He is oriented. No focal deficits. LABORATORY: WBC 21.6, hemoglobin 8.7, hematocrit 28.6, platelets 257,000. Sodium 137, potassium 2.9, chloride 99, bicarbonate 31, BUN 4, creatinine 0.5, glucose 87, calcium 8.2, magnesium 1.4. AST 129, ALT 76, alkaline phosphatase 1103, albumin 2, lipase 96. ASSESSMENT AND PLAN: 1. Abdominal pain with nausea, vomiting secondary to duodenitis, gastritis and colitis. Continue with same management for now. Intravenous fluids. 2. Pancreatitis, status post ERCP but this was not completed because the side-viewing scope could not be traversed past the stricture, biopsies were obtained from the stricture and they basically recommended to transfer this patient to [facility], but unfortunately they do not have a bed. I also call [facility] and [place], the plan is to try to get interventional radiology in those places to try to do a percutaneous transhepatic biliary decompression, biopsy and stent placement. 3. Clostridium difficile colitis on admission, already treated with vancomycin p.o. for 10 days. 4. Abnormally dilated gallbladder, again he is status post ERCP, which failed. 5. Electrolyte imbalance including hypokalemia, hypomagnesemia. I will replace it today. 6. History of invasive sigmoid adenocarcinoma, status post colon resection and end colostomy, followed by Dr. Zhou. 7. Chronic pain syndrome. Continue with pain medication. 8. Intractable nausea and vomiting. Continue with the same management for now. 9. Patient also admitted initially due to severe diarrhea which is better. 10. Elevated LFTs likely due to the obstruction in the biliary tree. cc: Josh Mascorro MD
--- NOTE | 2019-03-06 12:58 | GASTROENTEROLOGY PROGRESS NOTE ---
DATE: 03/06/2019 SUBJECTIVE: Mr. Rodriguez is a 63-year-old, male resting in bed. Family is at the bedside. The patient complained of nausea, vomiting and generalized abdominal tenderness. The patient mentioned that his colostomy bag had not been changed since yesterday. OBJECTIVE: Vital Signs: Temperature 97.9, pulse 84, respirations 18, blood pressure 135/82, oxygen saturation 96% on room air. The patient's weight is 167 pounds. BMI is 28.7 kg/m2. General: He is alert, oriented x3, and in no acute distress. HEENT: Pale conjunctivae. No icterus. PERRL. Neck: Supple. Lungs: Clear to auscultation. Cardiovascular: Regular rate and rhythm. Abdomen: Distended, firm, tender all over. Colostomy bag in the left quadrant. Hypoactive bowel sounds heard in all 4 quadrants. Extremities: No clubbing, no cyanosis. Generalized edema in the lower extremities. Pedal pulses 1+ present bilaterally. Neurological: Alert and oriented x3. LAB: WBCs are 21.66, RBCs 3.17, hemoglobin is 8.7, hematocrit is 28.6. Sodium 137, potassium 2.9, chloride 99, carbon dioxide 31, anion gap 7, BUN 4, creatinine 0.5, glucose 91, calcium 8.2, phosphorus 3.1, magnesium 1.4. Total bilirubin is 6.10, AST is 129, ALT 76, alkaline phosphatase 1103, albumin is 2.0, lipase is 96, and amylase is 57. IMAGING: Abdomen x-ray today showed nonspecific abdomen. An ERCP was attempted yesterday but the side-viewing scope was not able to pass into the duodenum. The duodenum was strictured down because of a mass on the medial wall of the duodenum and edema. EGD showed mucosa of the esophagus and the stomach was normal. There was a long stricture with an inner diameter of 10 mm in the second part of the duodenum and periampullary area. Biopsy was performed. Awaiting the results of the biopsy. IMPRESSION AND PLAN: 1. Nausea and vomiting. 2. Elevated liver enzymes. 3. Pancreatitis. 4. Jaundice. 5. Duodenal stricture. PLAN: Mr. Rodriguez is a 63-year-old, male with a history of colon cancer, status post colon resection with colostomy. The patient is still complaining of abdominal pain with nausea and vomiting. An ERCP was attempted yesterday but the side-viewing scope was not able to pass due to duodenal stricture. Biopsies were obtained from the stricture. The recommendation is for the patient to be transferred to [facility] for a percutaneous transhepatic biliary decompression, biopsy, and a stent placement. The primary care provider has been trying to contact [facility], [facility], and [place] but there is no bed available. Awaiting for the bed availability. In the meantime, the plan is for the interventional radiologist to try and put the stent in the ampulla. We will continue patient on PPI 40 mg twice a day. The patient is also on antiemetic, Phenergan 25 mg IV every 6 hours as needed for his nausea and vomiting. He is on Carafate liquid 1 g p.o. every 6 hours. The patient is also receiving iron tablet twice a day and Centrum multivitamin 1 tablet daily. For his bowel regimen, he is on MiraLAX 17 grams p.o. twice a day. We will continue to monitor the patient and follow the plan of care per PCP. This plan was discussed with Dr. Gusman. Please call us for any further questions or concerns. Dictated by ZEN Phillips for Hernán Gusman MD cc: Hernán Gusman MD I have seen and examined the patient myself and I agree with the above plan of care. I have spoken to Dr Whaley and Dr Dave Newton. Please call us with any further questions or concerns. [facility]
--- NOTE | 2019-03-06 14:45 | Diag Imaging Result Doc PS360 ---
EXAM: CT NECK/THORX/ABD/PELVIS W/CON HISTORY: Restaging TECHNIQUE: 1. CT neck with intravenous contrast 2. CT chest with intravenous contrast 3. CT abdomen and pelvis with intravenous contrast COMPARISON: CT chest, abdomen, and pelvis compared to 02/17/2019 FINDINGS: Neck: Near complete opacification of the right maxillary sinus. The parotid and submandibular glands are symmetric. Possible prior injury to the right side of the larynx. No soft tissue mass. The thyroid is not enlarged. There are small lymph nodes scattered in the neck. No enlarged lymph nodes. No abscess. CHEST: No change in the prominent left axillary lymph nodes. There are small bilateral pleural effusions which have developed since the prior exam. These measure 2.0 cm posteriorly in the midline. No cardiomegaly. No aortic aneurysm or dissection. Normal opacification of the pulmonary arteries. Small mediastinal nodes. Small patchy nodular infiltrates have developed in both lungs. No consolidation. Tiny scattered nodules are unchanged. There is basilar atelectasis. Abdomen and pelvis: The gallbladder remains overly distended. There is intra and extrahepatic biliary dilatation which is more prominent on the current exam. There is a small amount of fluid about the liver and spleen and in the paracolic gutters. Inflammation about the pancreatic head and duodenum is slightly more prominent. No pancreatic pseudocyst. No pancreatic calcifications. There are mildly prominent mesenteric and retroperitoneal nodes similar to the prior exam. Normal kidneys. No aortic aneurysm. No bowel obstruction. The sutures in the mid pelvis. Left lower quadrant ostomy. The urinary bladder is moderately distended and normal. There are fat filled inguinal hernias. IMPRESSION: Neck: Sinusitis CHEST: Development of small pleural effusions and patchy bilateral nodular infiltrates. Abdomen and pelvis: 1. Mild worsening in the peripancreatic and duodenal inflammation. No pseudocyst. 2. Development of minimal ascites 3. Worsening biliary dilatation. [place] distended gallbladder is similar. 4. Stable adenopathy This exam was performed using automated exposure control, adjustment of mA or kV according to patient size, and/or use of iterative reconstruction technique. Electronically signed by Gilbert Rinaldi 03/06/2019 2:43 PM
[2019-03-06] MEDS: SODIUM CHLORIDE 0.9% INJ PRN (16:00)
--- NOTE | 2019-03-06 18:52 | PROGRESS NOTE ---
DATE: 03/06/2019 SUBJECTIVE: I just called again at [facility] to see if they have a bed available for this patient or at least to put this patient on a list to be transferred to this center once they have a bed, but they are not have a bed available at this moment. I will continue trying. I will probably call in the morning again to see if we can get this patient to a facility where they can help him out. cc: Josh Mascorro MD
[2019-03-07] MEDS: LR 1,000 ML IV SCH ×2 (00:11→09:13)
[2019-03-07] MEDS: ZOSYN 3.375 GM in NS 50 ML IV SCH ×4 (03:03→20:34)
[2019-03-07] MEDS: CARAFATE LIQUID PO SCH ×4 (03:04→22:21)
[2019-03-07] MEDS: PHENERGAN IV PRN ×4 (03:58→19:55)
[2019-03-07] MEDS: NORCO-7.5 PO PRN (03:58)
[2019-03-07 07:48] LABS: BASO# 0.07 X1000 (0.0-0.2); BASO% 0.4 % (0.0-0.8); EOS# 0.06 X1000 (0.0-0.7); EOS% 0.4 % (0.0-10.0); HEMATOCRIT 26.7 % (42.0-52.0); HEMOGLOBIN 8.2 g/dL (14.0-18.0); IMM GRAN# 0.09 X1000 (0.0-0.04); IMM GRAN% 0.6 % (0.0-0.5); LYMPH# 0.85 X1000 (1.2-3.4); LYMPH% 5.4 % (20.5-51.1); MCH 27.5 PG (27-31); MCHC 30.7 g/dL (33-37); MCV 89.6 FL (81-99); MONO# 1.15 X1000 (0.11-0.59); MONO% 7.3 % (1.7-9.3); NEUT# 13.57 X1000 (1.4-6.5); NEUT% 85.9 % (42.2-75.2); PLT 250 X1000 (130-400); RBC 2.98 XMIL (4.7-6.1); RDW 18.7 % (11.5-14.5); WBC 15.79 X1000 (4.8-10.8)
[2019-03-07 08:03] LABS: AGAP 9; ALB/GLOB RATIO 0.5; ALBUMIN 1.9 g/dL (3.5-5.0); ALKALINE PHOSPHATASE 943 U/L (32-122); BUN 4 mg/dL (8-22); CALCIUM 7.9 mg/dL (8.8-10.2); CHLORIDE 104 mmol/L (98-107); COSMO 273; CREATININE 0.4 mg/dL (0.7-1.2); ESTIMATED GFR > 60; GLUCOSE 108 mg/dL (70-104); GOT 116 U/L (10-34); GPT 75 U/L (10-44); LIPASE 92 U/L (13-60); MAGNESIUM 1.6 mg/dL (1.5-2.7); PHOSPHORUS 3.2 mg/dL (2.7-4.5); SODIUM 138 mmol/L (136-145); TCO2 25 mmol/L (25-35); TOTAL BILIRUBIN 5.78 mg/dL (0.20-1.00); TOTAL PROTEIN 5.5 g/dL (6.3-8.3)
[2019-03-07 08:36] LABS: BANDS 4 % (0-1); HYPOCHROM 1+; LYMPHS 6 % (21-51); MONO 2 % (1-9); SEGS 88 % (42-75)
[2019-03-07] MEDS: D5 NS 1,000 ML IV SCH (09:12)
[2019-03-07] MEDS: MIRALAX PO SCH ×2 (09:15→20:34)
[2019-03-07] MEDS: ICAR-C PO SCH ×2 (09:16→20:35)
[2019-03-07] MEDS: CULTURELLE PO SCH ×2 (09:16→20:35)
[2019-03-07] MEDS: PROTONIX IV SCH ×2 (09:16→20:35)
[2019-03-07] MEDS: LOPRESSOR PO SCH ×2 (09:16→20:35)
[2019-03-07] MEDS: SODIUM CHLORIDE 0.9% INJ SCH (09:16)
[2019-03-07] MEDS: CENTRUM SILVER PO SCH (09:16)
[2019-03-07] MEDS: CARDIZEM PO SCH ×2 (09:17→20:35)
[2019-03-07] MEDS: COZAAR PO SCH (09:17)
[2019-03-07] MEDS ORDERED: MAGNESIUM SULFATE 2 GM/S.W.I. 2 GM/50 ML IVPB IV ONE (09:44)
[2019-03-07] MEDS ORDERED: POTASSIUM CHLORIDE 20% LIQUID PO ONE (09:44)
[2019-03-07] MEDS ORDERED: NORCO-7.5 PO PRN ×2 (10:58→13:07)
[2019-03-07] MEDS ORDERED: SODIUM CHLORIDE 0.9% INJ PRN (13:15)
--- NOTE | 2019-03-07 15:05 | GASTROENTEROLOGY PROGRESS NOTE ---
DATE: 03/07/2019 SUBJECTIVE: Mr. Rodriguez is a 63-year-old male. He is resting in bed. Family is at the bedside. The patient is still complaining of nausea, vomiting and generalized abdominal tenderness. The patient has a colostomy and the bag was changed yesterday. He is c/o of being constipated. OBJECTIVE: Vital Signs: Temperature 97.7 degrees, pulse 111, respirations 22, blood pressure 148/86. Oxygen saturation 96% on room air. The patient's weight is 167 pounds. BMI is 28.7 kg/m2. General: He is alert, oriented x3, and in no acute distress. HEENT: Pale conjunctivae. No icterus. PERRL. Neck: Supple. Lungs: Clear to auscultation. Cardiovascular: Patient is tachycardic. Abdomen: Distended, firm, tender all over. Hypoactive bowel sounds heard in all 4 quadrants. Colostomy bag on the left quadrant. Extremities: No clubbing. No cyanosis. Generalized edema in the lower extremities. Pedal pulses 2+ present bilaterally. Neurologic: He is alert, oriented x3. LABORATORY DATA: WBCs 15.79, RBC is 2.98, hemoglobin is 8.2, hematocrit is 26.7, platelet count is 250,000. Sodium 138, potassium 3.0, chloride 104, carbon dioxide 25, anion gap 9, BUN 4, creatinine 0.4, glucose 108, calcium 7.9, phosphorus 3.2, magnesium 1.6. Total bilirubin is 5.78, AST 116, ALT 75, alkaline phos 943. IMAGING: The patient's abdominal x-ray yesterday showed nonspecific abdomen. The patient's neck, chest and abdomen CT, neck has shown sinusitis, chest has shown development of small pleural effusions and patchy bilateral nodular infiltrates. Abdomen and pelvis is showing mild worsening in the peripancreatic and duodenal inflammation. No pseudocyst, development of minimal ascites, worsening biliary dilation, overly distended gallbladder, stable adenopathy. IMPRESSION AND PLAN: Ampullary mass Duodenal stricture Pancreatitis Nausea and vomiting Biliary obstruction Distended gallbladder History of colon cancer Recent C-diff PLAN: Mr. Rodriguez is a 63-year-old man with a history of colon cancer, status post colon resection with colostomy. An ERCP was attempted on 03/05, but the side-viewing scope was not able to pass due to the duodenal stricture. Biopsies were obtained from the strictures, they are pending. The patient needs a percutaneous transhepatic bilaterally decompression biopsy and a stent placement. As per PCP patient will be transferred to over the weekend for an ERCP and further evaluation if his condition is stable. He is currently on proton pump inhibitors twice a day. For his bowel regimen, he is on MiraLAX 17 g twice a day. He is on phenegran for his nausea and vomiting. We will continue to monitor the patient and follow the plan of care per PCP. This plan was discussed with Dr. Garcia. Please call us for any further questions or concerns. Dictated by ZEN Phillips for Maury Garcia MD Physician Attestation I have seen and examined the patient. I have discussed and reviewed the note by Bernie ZALDIVAR and agree with findings and plan as documented. In brief, Mr. 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 ERCP could not be done as side- viewing scope could not be traversed past the stricture. Biopsies were obtained from stricture. Spoke with Dr. Newton who arranged for procedure to be done to [facility] in [place] once bed is available for repeat ERCP attempt and possible PTC drain +/- stent placement. Continue antibiotics, antiemetics, trending labs. Will follow with you. [facility]
[2019-03-07] MEDS ORDERED: LR 1,000 ML IV SCH (16:08)
[2019-03-07] MEDS ORDERED: D10W 1,000 ML IV SCH (17:00)
--- NOTE | 2019-03-07 17:22 | PROGRESS NOTE ---
DATE: 03/07/2019 I just received a call from [facility], and I talked to Dr. Chan. Previously I had a conversation with the GI nurse practitioner composition floor layer today, and they are willing to take the patient so they can scope him and do an ERCP again on Sunday. This patient probably will be transferred this weekend. I will notify the transfer center if there is any change in his medical condition. Interventional Radiology evaluated the images, and they have suggested to first do a new ERCP by the Gastroenterology Department. So, this is the plan so far. We will try to have all the information together so he can be transferred this weekend if the patient remains table. On the other hand, I would keep the appointment with Dr. Angel in [facility] just in case we cannot transfer this patient over the weekend, so he can have the procedure done on Sunday at 1 p.m. I will keep monitoring this patient during the weekend, and hopefully he will be transferred. cc: Josh Mascorro MD
[2019-03-07] MEDS: [UNRECOGNIZED DRUG - OTHER] IV SCH ×9 (18:15)
[2019-03-07] MEDS: STERILE WATER IV SCH ×9 (18:15)
[2019-03-07] MEDS: AMINOSYN IV SCH ×9 (18:15)
[2019-03-07] MEDS ORDERED: LIPOSYN 20% 250 ML IV SCH (18:30)
--- NOTE | 2019-03-07 20:01 | PROGRESS NOTE ---
DATE: 03/07/2019 SUBJECTIVE: This patient is resting in bed but he is still complaining of nausea and vomiting. He ERCP was done 2 days ago but unfortunately it was not completed because there is a stricture in the duodenum and the practitioner was not able to traverse the side-viewing scope, biopsies were obtained from the stricture though. It has been recommended to transfer this patient to another hospital. I did call multiple places today, including [facility] in the morning and also in the afternoon. I called [facility] and I talked to Dr. Mccoy but, unfortunately, they do not have a bed either. Also I communicated with [facility] and I discussed the case with Dr. Angel. I called them at [phone], which is the Radiology Department. They have accepted to do the procedure on Sunday at 1 p.m. They have requested to communicate with Kelsie at [phone], which I believe is part of the Scheduling Department. Again, we will try to call today or Sunday to set up everything for this patient, including ambulance and the procedure which is going to be done again on 03/11/2019 at 1 p.m. PHYSICAL EXAMINATION: Vital signs: Temperature 97.9 degrees, pulse 111, respiratory rate 22, blood pressure 148/86, oxygen saturation 96 on room air. HEENT: Head normocephalic, no trauma, icteric sclerae. Neck: Supple, no JVD. No masses, central trachea. Chest: Clear to auscultation, some crepitus at the bases. The abdomen is soft, slightly to moderately distended, some tenderness to palpation around the periumbilical area. He has multiple midline surgical scars with no signs of problems. There is an ostomy on the left side. His bag is having some fecal material. No rebound. Neurologic examination: The patient is awake, alert. He is oriented on and off and he apparently has been confused, as per the family. LABORATORY: WBC 15.7, hemoglobin 8.2, hematocrit 26.7, platelets 250,000. Sodium 138, potassium 3, chloride 104, bicarbonate 25, BUN 4, creatinine 0.4. Glucose 108, calcium 7.9, magnesium 1.6. AST 116, ALT 75, alkaline phosphatase 943, albumin 1.9, lipase 92. ASSESSMENT AND PLAN: 1. Abdominal pain with nausea and vomiting secondary to duodenitis, gastritis and colitis, pancreatitis. Continue with same management for now. I have started this patient on TPN and continue with IV fluids. 2. Pancreatitis, status post endoscopic retrograde cholangiopancreatogram (ERCP). This procedure was not completed because the side-viewing scope could not be traverse past the stricture in the duodenum. Biopsies were obtained from the stricture and they basically recommended to transfer this patient to another hospital but, unfortunately, they do not have a bed. Today after discussing with [facility] with Dr. Mccoy and [facility], I called [facility] in [place] and a discussed the case with Dr. Angel at [phone]. He accepted to do the procedure on Sunday at 1 p.m. We need to send the patient and then, after the procedure, they will send this patient back to us. I told the doctor that I will try to send him to another place during the weekend and even today but, if I do not have any more options, the procedure will be done on Sunday. 3. Clostridium difficile colitis on admission, treated already with vancomycin for 10 days. 4. Abnormally dilated gallbladder. Again, this patient will need a procedure done. 5. Electrolyte imbalance, we will replace. 6. History of invasive sigmoid adenocarcinoma status post colon resection and end colostomy, followed by Dr. Zhou. 7. Chronic pain syndrome. Continue with pain medication. 8. Intractable nausea and vomiting. Continue with same management for now. 9. The patient also initially admitted due to severe diarrhea, which is better. 10. Elevated liver function tests, likely due to obstruction in the biliary tree. 11. This patient will need a percutaneous transhepatic biliary decompression, biopsy and stent placement. I have been trying to transfer this patient to [facility], [place] and [facility]. Today, also I called [facility] in [place] and I talked to Dr. Angel at [phone], which is the Radiology Service phone. He accepted to do the procedure on Sunday. logistics engineering manager has been notified to send all the documents and to try to set up the ambulance for that day. I will try to transfer this patient before Sunday to any other hospital if I can and if there is a bed available for him. They also have requested to send the documentation to Kelsie at [phone]. I believe she is part of the scheduling department. cc: Josh Mascorro MD
[2019-03-07 23:52] LABS: AGAP 10; BUN 6 mg/dL (8-22); CALCIUM 8.2 mg/dL (8.8-10.2); CHLORIDE 102 mmol/L (98-107); COSMO 273; CREATININE 0.4 mg/dL (0.7-1.2); ESTIMATED GFR > 60; GLUCOSE 121 mg/dL (70-104); PHOSPHORUS 2.5 mg/dL (2.7-4.5); POTASSIUM 3.1 mmol/L (3.5-5.1); SODIUM 137 mmol/L (136-145); TCO2 25 mmol/L (25-35)
[2019-03-08] MEDS: PHENERGAN IV PRN (01:19)
[2019-03-08] MEDS: ZOSYN 3.375 GM in NS 50 ML IV SCH ×3 (02:23→20:28)
[2019-03-08] MEDS: CARAFATE LIQUID PO SCH ×3 (04:51→21:44)
[2019-03-08] MEDS: [UNRECOGNIZED DRUG - OTHER] IV SCH ×9 (06:55)
[2019-03-08] MEDS: STERILE WATER IV SCH ×17 (06:55→20:43)
[2019-03-08] MEDS: AMINOSYN IV SCH ×17 (06:55→20:43)
[2019-03-08 08:34] LABS: BASO# 0.07 X1000 (0.0-0.2); BASO% 0.3 % (0.0-0.8); EOS# 0.06 X1000 (0.0-0.7); EOS% 0.3 % (0.0-10.0); HEMATOCRIT 29.8 % (42.0-52.0); HEMOGLOBIN 9.1 g/dL (14.0-18.0); IMM GRAN# 0.15 X1000 (0.0-0.04); IMM GRAN% 0.7 % (0.0-0.5); LYMPH# 1.01 X1000 (1.2-3.4); LYMPH% 4.5 % (20.5-51.1); MCH 27.5 PG (27-31); MCHC 30.5 g/dL (33-37); MONO# 1.47 X1000 (0.11-0.59); MONO% 6.6 % (1.7-9.3); MPV 10.2 FL (7.4-10.4); NEUT% 87.6 % (42.2-75.2); PLT 318 X1000 (130-400); RBC 3.31 XMIL (4.7-6.1); RDW 18.7 % (11.5-14.5); WBC 22.26 X1000 (4.8-10.8)
[2019-03-08 08:47] LABS: ESTIMATED GFR > 60
[2019-03-08 08:49] LABS: AGAP 13; ALB/GLOB RATIO 0.5; ALKALINE PHOSPHATASE 1064 U/L (32-122); BUN 6 mg/dL (8-22); CALCIUM 8.5 mg/dL (8.8-10.2); CHLORIDE 98 mmol/L (98-107); CHOLESTEROL 206 mg/dL (0-200); COSMO 269; CREATININE 0.4 mg/dL (0.7-1.2); GLUCOSE 128 mg/dL (70-104); GOT 128 U/L (10-34); GPT 86 U/L (10-44); LIPASE 112 U/L (13-60); PHOSPHORUS 2.9 mg/dL (2.7-4.5); POTASSIUM 3.1 mmol/L (3.5-5.1); SODIUM 135 mmol/L (136-145); TCO2 24 mmol/L (25-35); TOTAL BILIRUBIN 7.09 mg/dL (0.20-1.00); TOTAL PROTEIN 6.1 g/dL (6.3-8.3); TRIGLYCERIDES 270 mg/dL (39-160)
[2019-03-08 09:33] LABS: ANISOCYTOSIS 2+; HYPOCHROM 2+; LYMPHS 5 % (21-51); MONO 6 % (1-9); POLYCHROM 1+; SEGS 89 % (42-75)
[2019-03-08] MEDS: MIRALAX PO SCH ×2 (11:42→20:32)
[2019-03-08] MEDS: CENTRUM SILVER PO SCH (11:43)
[2019-03-08] MEDS: LOPRESSOR PO SCH ×2 (11:43→20:33)
[2019-03-08] MEDS: CARDIZEM PO SCH ×2 (11:43→20:33)
[2019-03-08] MEDS: ICAR-C PO SCH ×2 (11:43→20:33)
[2019-03-08] MEDS: COZAAR PO SCH (11:44)
[2019-03-08] MEDS: CULTURELLE PO SCH ×2 (11:44→20:33)
[2019-03-08] MEDS: PROTONIX IV SCH ×2 (11:44→20:28)
[2019-03-08] MEDS: SODIUM CHLORIDE 0.9% INJ SCH (11:45)
--- NOTE | 2019-03-08 13:18 | PROGRESS NOTE ---
DATE: 03/08/2019 SUBJECTIVE: No big changes compared with yesterday. This patient is still complaining of some nausea. Hopefully, he can be transferred to [facility] tomorrow. OBJECTIVE: Vital Signs: Temperature 97.5 degrees, pulse 125, respiratory rate 22, blood pressure 165/96, and oxygen saturation 100% on room air. HEENT: Head normocephalic. No trauma. Icteric sclerae. Neck: Supple. No JVD. No masses. Central trachea. Chest: Clear to auscultation with some crepitus at the bases. Abdomen: Soft. Slightly to moderately distended. Some tenderness to palpation mostly at the level of the periumbilical area and right upper quadrant. He has a midline scar with no signs or problems at this moment. There is an ostomy on the left side. His bag is having some fecal material. No rebound. Neurological: Patient is awake and alert. He is oriented at this moment. LABORATORY: WBC 22.2, hemoglobin 9.1, hematocrit 29.8, and platelets 318,000. Sodium 135, potassium 3.1, chloride 98, bicarbonate 24, BUN 6, creatinine 0.4, glucose 128, calcium 8.5, AST 128, ALT 86, alkaline phosphatase 1064, and albumin 2. ASSESSMENT AND PLAN: 1. Abdominal pain with nausea and vomiting secondary to duodenitis, gastritis, colitis and pancreatitis. Continue with same management for now. We have started this patient on TPN. Continue IV fluids. 2. Pancreatitis, status post ERCP. This procedure was not completed because the side viewing scope could no be traversed past the stricture in the duodenum. Biopsies were obtained from the stricture, and they basically recommended to transfer this patient to another hospital. [facility] has accepted this patient and probably they will do a new ERCP to see if they can cannulate the biliary tree, and hopefully this patient can go tomorrow. On the other hand, [facility] in [place] also accepted the patient, but he has to be transferred there on Sunday to get the procedure done. They will send this patient back to us again. 3. Clostridium difficile colitis on admission, treated with vancomycin for 10 days. 4. Abnormally dilated gallbladder. Again, this patient needs the procedure done. 5. Electrolyte imbalance, will replace. 6. History of invasive adenocarcinoma, status post colon resection and end colostomy followed by Dr. Zhou. 7. Chronic pain syndrome. Continue pain medication. 8. Intractable nausea and vomiting. Continue with same management for now. 9. This patient initially was admitted due to severe diarrhea which is better. 10. Elevated liver function tests, likely due to the obstruction in the biliary tree. 11. This patient will need a percutaneous transhepatic biliary decompression, biopsy and stent placement. Hopefully, he can be transferred to [facility] tomorrow. He has been already accepted. On the other hand, if he cannot go to [facility], we have already set up an appointment for him next Sunday at [facility] with Dr. Angel at 1:00 in the afternoon. In that case, he will get the procedure done and they will send this patient back to us. cc: Josh Mascorro MD
--- NOTE | 2019-03-08 13:30 | PROGRESS NOTE ---
DATE: 03/08/2019 Mr. Irwin Rodriguez Sr. is a 63-year-old white male who is jaundiced. He has been seen by Dr. Newton. He has undergone an attempted ERCP per Dr. Hall. He has a history of colon cancer. He has undergone colon resection with colostomy. This morning, he is awake, and appears to be mostly comfortable. His heart rate is 109 to 125, blood pressure 165/96, O2 saturation is 100%. He is afebrile. He is on IV Zosyn. His white blood cell count is elevated at 22 and hematocrit is 30%. Liver function tests are elevated. His total bilirubin has gone from 5.8 to 7. He is receiving IV nutrition. He has been given a full liquid diet. cc: Bertha Brown MD
[2019-03-08] MEDS: ZOFRAN IV PRN ×2 (14:32→20:26)
[2019-03-08] MEDS: DURAGESIC 50 MICROGM/HR PATCH TD SCH (20:30)
[2019-03-08] MEDS: [UNRECOGNIZED DRUG - OTHER] IV SCH ×8 (20:43)
--- NOTE | 2019-03-08 23:13 | PROVIDER PROGRESS NOTE ---
Progress Note S: No acute overnight events. Patient's condition unchanged. Awaiting transfer. O: Last Vital Signs Temp 97.3 F L 03/08/19 20:00 Pulse 117 H 03/08/19 20:00 Resp 20 03/08/19 15:41 BP 159/96 03/08/19 20:00 Pulse Ox 100 03/08/19 20:00 Height 5 ft 4 in Weight 195 lb GEN: awake, alert, NAD HEENT: icterus, MMM NECK: supple, no JVD PULM: CTA anteriorly ABD: LLQ ostomy with green stool, TTP throughout, no peritonitis EXT: no cce NEURO: nonfocal LABS: 03/08/19 03/08/19 07:48 07:48 WBC 22.26 H Hgb 9.1 L Plt Count 318 Sodium 135 L Potassium 3.1 L Chloride 98 Creatinine 0.4 L Glucose 128 H Total Bilirubin 7.09 H Direct Bilirubin 6.10 H AST 128 H ALT 86 H Alkaline Phosphatase 1064 H Total Protein 6.1 L Albumin 2.0 L Prealbumin 5.0 L A/P Mr. 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 ERCP could not be done as side- viewing scope could not be traversed past the stricture. Biopsies were obtained from stricture. Awaiting transfer to [facility] repeat ERCP attempt vs PTC drain +/- stent placement. Continue antibiotics, antiemetics, trending labs. Will follow with you. Ampullary mass Duodenal stricture Pancreatitis Nausea and vomiting Biliary obstruction Anemia Leukocytosis
[2019-03-09] MEDS: ZOSYN 3.375 GM in NS 50 ML IV SCH ×2 (03:02→09:12)
[2019-03-09] MEDS: CARAFATE LIQUID PO SCH ×2 (03:06→09:12)
[2019-03-09] MEDS: ZOFRAN IV PRN ×2 (04:41→10:56)
[2019-03-09] MEDS: STERILE WATER IV SCH ×8 (06:24)
[2019-03-09] MEDS: [UNRECOGNIZED DRUG - OTHER] IV SCH ×8 (06:24)
[2019-03-09] MEDS: AMINOSYN IV SCH ×8 (06:24)
[2019-03-09 07:33] LABS: BASO# 0.05 X1000 (0.0-0.2); BASO% 0.2 % (0.0-0.8); EOS# 0.03 X1000 (0.0-0.7); EOS% 0.1 % (0.0-10.0); HEMATOCRIT 27.8 % (42.0-52.0); HEMOGLOBIN 8.5 g/dL (14.0-18.0); IMM GRAN# 0.15 X1000 (0.0-0.04); IMM GRAN% 0.7 % (0.0-0.5); LYMPH# 0.99 X1000 (1.2-3.4); LYMPH% 4.5 % (20.5-51.1); MCH 27.2 PG (27-31); MCHC 30.6 g/dL (33-37); MCV 88.8 FL (81-99); MONO# 1.45 X1000 (0.11-0.59); MONO% 6.6 % (1.7-9.3); MPV 10.7 FL (7.4-10.4); NEUT# 19.18 X1000 (1.4-6.5); NEUT% 87.9 % (42.2-75.2); PLT 303 X1000 (130-400); RBC 3.13 XMIL (4.7-6.1); RDW 18.8 % (11.5-14.5); WBC 21.85 X1000 (4.8-10.8)
[2019-03-09 08:07] VITALS: BP 128/98
[2019-03-09 08:08] LABS: AGAP 12; ALB/GLOB RATIO 0.4; ALBUMIN 1.6 g/dL (3.5-5.0); ALKALINE PHOSPHATASE 1073 U/L (32-122); BUN 6 mg/dL (8-22); CALCIUM 8.1 mg/dL (8.8-10.2); CHLORIDE 96 mmol/L (98-107); COSMO 263; CREATININE 0.3 mg/dL (0.7-1.2); ESTIMATED GFR > 60; GLUCOSE 144 mg/dL (70-104); GOT 138 U/L (10-34); GPT 86 U/L (10-44); MAGNESIUM 1.9 mg/dL (1.5-2.7); PHOSPHORUS 3.2 mg/dL (2.7-4.5); POTASSIUM 3.7 mmol/L (3.5-5.1); SODIUM 131 mmol/L (136-145); TCO2 23 mmol/L (25-35); TOTAL BILIRUBIN 7.15 mg/dL (0.20-1.00); TOTAL PROTEIN 5.9 g/dL (6.3-8.3)
[2019-03-09] MEDS: PROTONIX IV SCH (09:11)
[2019-03-09] MEDS: ICAR-C PO SCH (09:12)
[2019-03-09] MEDS: CULTURELLE PO SCH (09:13)
[2019-03-09] MEDS: COZAAR PO SCH (09:13)
[2019-03-09] MEDS: CARDIZEM PO SCH (09:13)
[2019-03-09] MEDS: CENTRUM SILVER PO SCH (09:14)
[2019-03-09] MEDS: LOPRESSOR PO SCH (09:15)
[2019-03-09] MEDS: MIRALAX PO SCH (09:15)
--- NOTE | 2019-03-10 05:51 | DISCHARGE SUMMARY ---
ADMISSION DATE: 02/17/2019 DISCHARGE DATE: 03/09/2019 DIAGNOSES: 1. Abdominal pain with nausea, vomiting, secondary to duodenitis, gastritis, colitis, and pancreatitis. 2. Pancreatitis status post attempted ERCP status post failed ERCP due to stricture. 3. Clostridium difficile colitis, treated with vancomycin for 10 days. 4. Abnormally dilated gallbladder. 5. Electrolyte imbalance. 6. History of invasive adenocarcinoma, status post colon resection and colostomy followed by Dr. Zhou. 7. Chronic pain syndrome. 8. Intractable nausea and vomiting. 9. Diarrhea improving. 10. Elevated liver function test, likely due to obstruction of the biliary tree. CONSULTANTS: 1. Dr. Dave Newton of General Surgery. 2. Dr. Roper gastroenterology. DIAGNOSTICS: 1. Chest x-ray revealed no acute evidence of pathology. 2. CT of the abdomen and pelvis 02/17/2019. 3. CTA of the pulmonary arteries revealed no evidence of pulmonary embolism, scattered subcentimeter pulmonary nodules, left axillary adenopathy, and metastatic disease cannot be excluded. 4. CT of the abdomen and pelvis substantially revealed distended gallbladder, no discrete calcified gallstones or gross pericholecystic inflammation. Acute pancreatitis and/or duodenitis. No evidence of perforated ulcer, mesenteric, and retroperitoneal adenopathy similar to prior. Apparent mild right colitis. 5. CT of the head. No evidence of acute intracranial disease and right maxillary sinusitis. 6. 03/06/2019: Abdominal x-ray revealed nonspecific abdomen. 7. 03/06/2019: CT of the neck, thorax, abdomen, and pelvis with contrast revealed mild worsening in the peripancreatic and duodenal inflammation. No pseudocyst, development of minimal ascites, worsening biliary dilatation, overly distended gallbladder is similar. Stable adenopathy. PROCEDURES: 1. On 02/27/2019, EGD revealed reflux esophagitis in the distal esophagus. Acute gastritis was found in the gastric antrum and on the greater curvature of the gastric body. Duodenal inflammation was found in the duodenal bulb, 1st part of the duodenum and 2nd part of the duodenum. Acquired stenosis around the second part of the duodenum and 1st part of the duodenum. 2. 03/05/2019, EGD with biopsy and failed ERCP. ERCP was attempted but side- viewing scope could not be passed in the duodenum. Duodenum was strictured down because of mass effect on the medial wall of the duodenum and severe edema. The scope was switched. EGD was then done which revealed mucosa of the esophagus appeared normal. Mucosa of the stomach appeared normal. There was a long stricture with an inner diameter of 10 mm in the second part of the duodenum and periampullary area. Multiple biopsies were performed. 3. 03/03/2019: MRCP. Limited study due to excessive motion artifact. Small amount of pericholecystic fluid, fluid around the head of the pancreas similar to this previous CT suggesting pancreatitis. Dilated common bile duct, but no definite intraductal filling defect is identified. 4. Duodenal biopsies are pending. MICROBIOLOGY: 1. Blood cultures x2 revealed no growth after 5 days. 2. Influenza screen. Influenza A and influenza B are negative. 3. Urine culture revealed no growth. 4. C difficile toxin was negative. 5. C difficile antigen is positive. HOSPITAL COURSE: Mr. Rodriguez presented to the hospital complaining of nausea and vomiting for 5 days with diarrhea x2 days. He was found to have acute pancreatitis and colitis for which he was held NPO, given IV morphine and Zofran for pain along with IV hydration. Electrolytes were trended and repleted as was appropriate. He was ultimately found to have C. Difficile antigen. He did receive 10 days of vancomycin orally. Diet was progressed slowly. He has tolerated full liquids. He underwent EGD and attempted ERCP and MRCP with results as stated above. Gastroenterology recommended that the patient be transferred to [facility]. We did call, and they do not have a bed. We did call [facility] as well as [place]. They had no beds. This was on the . On the , Dr. Whaley did reach Dr. Angel at [facility] in [place] and he accepted the patient to do the procedure Sunday at 1:00 in the afternoon, and then they would send the patient back to us. They were unable to accept the patient in transfer to their hospital due to the bed situation. Dr. Whaley continue to check with the Transfer Center at [facility], and thankfully today they were able to take the patient in transfer. Dr. Hall was unable to cannulate due to the mass effect on the medial wall of the duodenum and severe edema. He recommended percutaneous transhepatic biliary decompression. Thankfully, we are able to send him to [facility] for this with the plans being a repeat ERCP at [facility]. If this fails, then transhepatic biliary decompression will be performed. The patient is in agreement. DISCHARGE VITAL SIGNS: Blood pressure 128/90 with a heart rate of 113, respirations 20, temperature 98.3 degrees with room air saturations 100%. DISCHARGE PHYSICAL EXAMINATION: Cardiovascular: Regular rate and rhythm. He is tachycardic. S1 and S2 are appreciated. Pulmonary: Breath sounds are clear with a few crackles in the bases. Chest rises and falls symmetrically with respiration. Gastrointestinal: Abdomen is soft with some tenderness at the periumbilical to right upper quadrant. Ostomy is intact. Stoma is pink. Neurologic: He is alert and oriented. DISCHARGE MEDICATIONS: 1. At present, the patient is on TPN. 2. Cardizem 30 mg p.o. b.i.d. 3. Fentanyl patch 50 mcg as directed. 4. [place] 7.5 q.6 hours p.r.n. 5. Icar C 1 p.o. b.i.d. 6. Culturelle 1 p.o. b.i.d. 7. Lopressor 50 mg p.o. q.12 hours. 8. Multivitamin 1 p.o. daily. 9. Zofran 4 mg IV q.6 hours p.r.n. 10. Protonix 40 mg IV q.12 hours. 11. Zosyn 3.375 IV q.6 hours. 12. MiraLAX 17 g b.i.d. 13. Carafate 1 g p.o. q.6 hours. 14. We are holding Xarelto 20 mg p.o. daily. CONDITION: He is being discharged in stable condition in transfer to [facility]. TIME SPENT: This is a greater than 30 minute discharge. Dictated by ZEN Lema for Josh Mascorro MD cc: ZEN Lema MD [facility]
== END 2019-03-09 11:08 | disposition short-term general hospital (02) | DRG 371 ==
LOC: ED 15:40 → SUATTDRO 15:41 → EDIPHOLD 02-18 04:38 → 3N 02-19 12:31
PROVIDERS: ATTEND Internal Medicine
PROC: EN.ERCP (2019-03-05 16:03)